=== PATIENT | female | born 1945 | race Caucasian/White ===

== ENCOUNTER → 2019-03-22 08:46 | Outpatient (BNVA) | payer MEDICARE, SELFPAY | PROVIDERS: Family Provider Nurse Practitioner; PCP Nurse Practitioner; Visit Provider Nurse Practitioner | DX: E11.42 Type 2 diabetes mellitus with diabetic polyneuropathy (principal); I10 Essential (primary) hypertension; K21.9 Gastro-esophageal reflux disease without esophagitis; E03.9 Hypothyroidism, unspecified | CPT/HCPCS: 80048; 81003 ==

== ENCOUNTER → 2019-04-24 08:33 | Outpatient (BNVA) | payer MEDICARE, SELFPAY | PROVIDERS: Family Provider Nurse Practitioner; PCP Nurse Practitioner; Visit Provider Nurse Practitioner | DX: I10 Essential (primary) hypertension (principal); M10.9 Gout, unspecified; E11.42 Type 2 diabetes mellitus with diabetic polyneuropathy; E03.9 Hypothyroidism, unspecified; E55.9 Vitamin D deficiency, unspecified; N18.9 Chronic kidney disease, unspecified; K21.9 Gastro-esophageal reflux disease without esophagitis | CPT/HCPCS: 80053; 80061; 83036; 84443; 84550 ==

== ENCOUNTER → 2019-04-25 10:32 | Outpatient (BNVA) | payer MEDICARE, SELFPAY | PROVIDERS: Family Provider Nurse Practitioner; PCP Nurse Practitioner; Visit Provider Nurse Practitioner | DX: E11.42 Type 2 diabetes mellitus with diabetic polyneuropathy (principal); E03.9 Hypothyroidism, unspecified; E11.65 Type 2 diabetes mellitus with hyperglycemia; K21.9 Gastro-esophageal reflux disease without esophagitis; I10 Essential (primary) hypertension; E11.69 Type 2 diabetes mellitus with other specified complication; M10.9 Gout, unspecified | CPT/HCPCS: 81003 ==

== ENCOUNTER → 2019-07-22 09:23 | Outpatient (BNVA) | payer MEDICARE, SELFPAY | PROVIDERS: Family Provider Nurse Practitioner; PCP Nurse Practitioner; Visit Provider Nurse Practitioner | DX: E11.65 Type 2 diabetes mellitus with hyperglycemia (principal); I10 Essential (primary) hypertension; E03.9 Hypothyroidism, unspecified | CPT/HCPCS: 80053; 80061; 81000; 83036; 84443 ==

== ENCOUNTER → 2019-10-14 08:05 | Outpatient (BNVA) | payer MEDICARE, SELFPAY | PROVIDERS: Family Provider Nurse Practitioner; PCP Nurse Practitioner; Visit Provider Nurse Practitioner | DX: E03.9 Hypothyroidism, unspecified (principal); E11.65 Type 2 diabetes mellitus with hyperglycemia; I10 Essential (primary) hypertension | CPT/HCPCS: 80053; 80061; 81000; 83036; 84443; 87086 ==

== ENCOUNTER 2019-11-11 13:01 | Outpatient (CLI) | payer MEDICARE, SELFPAY ==
--- NOTE | 2019-11-11 13:05 | MM_ITS ---
WS: [id number] BILATERAL SCREENING DIGITAL MAMMOGRAM WITH CAD HISTORY: SCREENING COMPARISON: 10/16/2018 and 09/21/2017 Bilateral CC and MLO views submitted. Computer aided detection analyzed. Breast composition: There are scattered areas of fibroglandular density. No suspicious masses, microc alcifications or architectural distortion. Benign calcifications in each breast. No suspicious masses . MM/[place] [id number] IMPRESSION: BI-RADS: 2-Benign FOLLOW UP: 1 Year Follow-up
== END 2019-11-11 13:02 | disposition home or self-care (01) ==
LOC: RADSHAW 13:03
PROVIDERS: PCP Nurse Practitioner; Visit Provider Nurse Practitioner
DX: Z12.31 Encounter for screening mammogram for malignant neoplasm of breast (principal)
CPT/HCPCS: 77067

== ENCOUNTER → 2020-01-06 08:21 | Outpatient (BNVA) | payer MEDICARE, SELFPAY | PROVIDERS: PCP Nurse Practitioner; Visit Provider Nurse Practitioner | DX: E11.65 Type 2 diabetes mellitus with hyperglycemia (principal); Z79.4 Long term (current) use of insulin; I10 Essential (primary) hypertension; E03.9 Hypothyroidism, unspecified; E55.9 Vitamin D deficiency, unspecified | CPT/HCPCS: 80053; 80061; 82306; 83036; 84443 ==

== ENCOUNTER → 2020-01-09 10:48 | Outpatient (BNVA) | payer MEDICARE, SELFPAY | PROVIDERS: PCP Nurse Practitioner; Visit Provider Nurse Practitioner | DX: E11.65 Type 2 diabetes mellitus with hyperglycemia (principal); E11.42 Type 2 diabetes mellitus with diabetic polyneuropathy; I10 Essential (primary) hypertension; E03.9 Hypothyroidism, unspecified; Z79.4 Long term (current) use of insulin | CPT/HCPCS: 81003 ==

== ENCOUNTER → 2020-02-03 16:39 | Outpatient (BNVA) | payer MEDICARE, SELFPAY | PROVIDERS: PCP Nurse Practitioner; Visit Provider Nurse Practitioner Family | DX: Z20.828 Contact with and (suspected) exposure to other viral communicable diseases (principal) | CPT/HCPCS: 87635 ==

== ENCOUNTER → 2020-03-26 08:26 | Outpatient (BNVA) | payer MEDICARE, SELFPAY | PROVIDERS: PCP Nurse Practitioner; Visit Provider Nurse Practitioner | DX: E11.65 Type 2 diabetes mellitus with hyperglycemia (principal); Z79.4 Long term (current) use of insulin; E55.9 Vitamin D deficiency, unspecified; I10 Essential (primary) hypertension; E03.9 Hypothyroidism, unspecified | CPT/HCPCS: 80053; 80061; 82306; 83036; 84443; 85025 ==

== ENCOUNTER → 2020-06-25 08:27 | Outpatient (BNVA) | payer MEDICARE, SELFPAY | PROVIDERS: PCP Nurse Practitioner; Visit Provider Nurse Practitioner | DX: E03.9 Hypothyroidism, unspecified (principal); E11.65 Type 2 diabetes mellitus with hyperglycemia; E55.9 Vitamin D deficiency, unspecified; Z79.4 Long term (current) use of insulin; I10 Essential (primary) hypertension | CPT/HCPCS: 80053; 80061; 82306; 83036; 84443; 85025 ==

== ENCOUNTER → 2020-07-08 10:09 | Outpatient (BNVA) | payer MEDICARE, SELFPAY | PROVIDERS: PCP Nurse Practitioner; Visit Provider Nurse Practitioner | DX: M25.551 Pain in right hip (principal); M16.11 Unilateral primary osteoarthritis, right hip | CPT/HCPCS: 72100; 73502 ==

== ENCOUNTER → 2020-09-24 08:26 | Outpatient (BNVA) | payer MEDICARE, SELFPAY | PROVIDERS: PCP Nurse Practitioner; Visit Provider Nurse Practitioner | DX: E03.9 Hypothyroidism, unspecified (principal); E11.65 Type 2 diabetes mellitus with hyperglycemia; E55.9 Vitamin D deficiency, unspecified; I10 Essential (primary) hypertension; Z79.4 Long term (current) use of insulin | CPT/HCPCS: 80053; 80061; 82306; 83036; 84443; 85025 ==

== ENCOUNTER → 2020-10-19 10:12 | Outpatient (BNVA) | payer MEDICARE, SELFPAY | PROVIDERS: PCP Nurse Practitioner; Referring Provider Nurse Practitioner; Visit Provider Specialist | DX: M16.11 Unilateral primary osteoarthritis, right hip (principal) | CPT/HCPCS: 73502 ==

== ENCOUNTER 2020-12-21 09:08 | Outpatient (CLI) | payer MEDICARE, SELFPAY ==
--- NOTE | 2020-12-21 09:13 | MM_ITS ---
WS: [id number] BILATERAL DIGITAL SCREENING MAMMOGRAPHY WITH CAD CLINICAL INFORMATION: SCREENING HISTORY: Screening mammogram. No current complaints. COMPARISON: November 11, 2019 TECHNIQUE: Bilateral CC and MLO views. FINDINGS: Scattered fibroglandular densities bilaterally. Stable incidental punctate calcifications. No suspici ous focal mass, asymmetry, calcifications, or architectural distortion. No evidence of malignancy. MM/[place] [id number] IMPRESSION: BI-RADS: 2-Benign FOLLOW UP: 1 Year Follow-up Recommend return to annual screening mammography.
== END 2020-12-21 09:09 | disposition home or self-care (01) ==
LOC: RADSHAW 09:11
PROVIDERS: PCP Nurse Practitioner; Visit Provider Nurse Practitioner
DX: Z12.31 Encounter for screening mammogram for malignant neoplasm of breast (principal)
CPT/HCPCS: 77067

== ENCOUNTER → 2020-12-22 06:47 | Day surgery (SDC) | payer MEDICARE, SELFPAY | PROVIDERS: PCP Nurse Practitioner; Visit Provider Specialist | DX: Z01.818 Encounter for other preprocedural examination (principal); M16.11 Unilateral primary osteoarthritis, right hip | CPT/HCPCS: 93005 ==

== ENCOUNTER → 2020-12-24 08:47 | Outpatient (BNVA) | payer MEDICARE, SELFPAY | PROVIDERS: PCP Nurse Practitioner; Visit Provider Nurse Practitioner | DX: E55.9 Vitamin D deficiency, unspecified (principal); I10 Essential (primary) hypertension; E11.42 Type 2 diabetes mellitus with diabetic polyneuropathy; E03.9 Hypothyroidism, unspecified; Z79.4 Long term (current) use of insulin | CPT/HCPCS: 80053; 80061; 82306; 83036; 84443 ==

== ENCOUNTER 2020-12-28 17:48 | Emergency (ER) | payer MEDICARE, SELFPAY ==
--- NOTE | 2020-12-28 17:55 | USR_ITS ---
PROCEDURE INFORMATION: Exam: US Duplex Right Lower Extremity Veins, Limited Exam date and time: 12/28/2020 5:55 PM Age: 75 years old Clinical indication: Pain; Leg, upper; Right; Additional info: Pain/swelling; Also look for carpenter's TECHNIQUE: Imaging protocol: Real-time Duplex ultrasound of the Right Lower Extremity with 2-D hankins scale, color Doppler flow and spectral waveform analysis with image documentation. Limited exam was focused on the right lower extremity veins. COMPARISON: No relevant prior studies available. FINDINGS: Right deep veins: Unremarkable. The common femoral, femoral, proximal profunda femoral and popliteal veins are patent without thrombus. Normal Doppler waveforms. Normal compressibility and/or augmentation response. Right superficial veins: Unremarkable. Saphenofemoral junction is patent without thrombus. Soft tissues: Unremarkable. US/[place] [id number] IMPRESSION: No evidence of deep vein thrombosis. Radiation Dose CTDIVOL = (mGy): DLP = (mGy-cm)
[2020-12-28 18:08] VITALS: BP 149/88; PULSE 86; RESP 18; TEMP 36.8; O2SAT 94; BMI 37.3
[2020-12-28 19:40] VITALS: BP 135/89; PULSE 77; RESP 18; O2SAT 96
--- NOTE | 2020-12-28 20:47 | W.ED.GENADLT ---
HPI - General Adult General: Chief complaint: General Medical Stated complaint: PAINFUL AREA BEHIND/INSIDE R KNEE:HX BLOOD CLOTS Time Seen by Provider: 12/28/20 20:34 Source: patient Mode of arrival: ambulatory Limitations: no limitations History of Present Illness: HPI narrative: Patient is a nice 75-year-old female who presents to ED today with a complaint of right leg pain mainly to her medial lower thigh that she noticed 2 days ago. She has had intermittent sharp pains to that area followed by periods of no discomfort. She has not noticed any redness or swelling. She is scheduled to have a hip replacement by Dr. Singleton next week so was recommended to come to the ED for rule out DVT. Patient is not having any chest pain or shortness of breath. Onset (ago): day(s) Severity: mild Pain Consistency: intermittent Relieving factors: none Exacerbating factors: none Associated symptoms: Reports no associated symptoms; Deny chest pain, dyspnea, malaise, nausea, palpitations, syncope or vomiting Treatments prior to arrival: none Review of Systems Const: Denies: fever(s), chills, body aches, fatigue or malaise Card: Denies: chest pain, palpitations, edema, lightheadedness, syncope, pre-syncope or dyspnea on exertion Resp: Denies: dyspnea GI: Denies: nausea or vomiting Musc: Reports: extremity pain; Denies: extremity swelling, joint pain, joint swelling, joint redness or limited range of motion Neuro: Denies: numbness in extremities or sensory changes PFSH ED PFSH: Medical History Acquired hypothyroidism Cerebrovascular ischemia, transient Chronic GERD Chronic kidney disease, unspecified Controlled diabetes mellitus with hyperglycemia, with long-term current use of insulin Controlled type 2 diabetes mellitus with diabetic polyneuropathy Essential (primary) hypertension Gout, unspecified History of mammogram 05/19/2016 Osteoarthritis involving multiple joints on both sides of body Restless legs syndrome Vitamin D deficiency Surgical History History of appendectomy History of cholecystectomy History of colonoscopy 08/16/2015 History of hip surgery Dec 2015 left total hip History of tonsillectomy Status post surgery of both feet Family History Mother Cancer PANCREASE Grandfather Diabetes PATERNAL Father Stroke Heart disease Social History Second hand smoke exposure: No Smoking risk assessment/counseling performed?: No Alcohol intake: never Desire information about alcohol rehabilitation?: No Counseling given: No Desire information about substance/drug rehabilitation?: No Counseling given: No Adopted: No Caregiver/support person: No Lives independently: Yes Household members: none Housing: House Marital status: Number of children: 1 service: No Current occupational status: unemployed Pets and animals: No History of recent travel: No Current gender identity: Female Physical Exam Const: COMMON NORMALS: no acute distress, patient oriented x3, no limitations and alert GENERAL APPEARANCE: cooperative NUTRITIONAL APPEARANCE: obese ORIENTATION/CONSCIOUSNESS: Yes awake, Yes oriented to person, Yes oriented to place and Yes oriented to time Extremity: RIGHT LOWER EXTREMITY: Yes upper leg (mild TTP medial distal thigh; no redness/swelling/palpable cord) Right upper leg: Yes neurovascular exam (normal DP/PT pulses) Neuro: COMMON NORMALS: patient oriented x3, moves all extremities, no focal motor deficits, no sensory deficits noted and gait normal SENSORIUM/ORIENTATION: Yes alert, Yes oriented to person, Yes oriented to place and Yes oriented to time Skin: COMMON NORMALS: no rashes or lesions noted GENERAL SKIN EXAM: no rashes or lesions noted TRAUMA: no lacerations or abrasions Course Vital Signs: Vital signs: Vital Signs Temperature 98.2 F 12/28/20 18:08 Pulse Rate 77 12/28/20 19:40 Respiratory Rate 18 12/28/20 19:40 Blood Pressure 135/89 12/28/20 19:40 Pulse Oximetry 96 12/28/20 19:40 MDM - General Adult Imaging Data^: US venous R LE: My impression: Per Maximus Panda, tech-no DVT, no Richmond's cyst Discharge Plan Discharge Patient Disposition: Home Clinical Impression: Acute pain of right thigh Condition: Stable Prescriptions: No Action allopurinol 100 mg tablet 100 mg PO DAILY Qty: 90 RF: 0 duloxetine [Cymbalta] 20 mg capsule,delayed release(DR/EC) 20 mg PO BID Qty: 180 RF: 0 famotidine [Pepcid] 40 mg tablet 40 mg PO DAILY Qty: 90 RF: 0 Soliqua 100/33 100 unit-33 mcg/mL insulin pen See Rx Instructions SUBCUT QAM Qty: 15 RF: 1 metformin 500 mg tablet extended release 24 hr 1,000 mg PO BID Qty: 360 RF: 0 (DME) pen needle, diabetic [Comfort EZ Pen [place]] 33 gauge x 5/32 needle See Rx Instructions .ROUTE .MEDSUPPLY Qty: 100 RF: 5 pregabalin [Lyrica] 75 mg capsule 75 mg PO BID Qty: 60 RF: 2 rosuvastatin 20 mg tablet 20 mg PO .HS Qty: 90 RF: 0 levothyroxine [Synthroid] 175 mcg tablet See Rx Instructions PO DAILY Qty: 90 RF: 0 lisinopril 5 mg tablet 5 mg PO DAILY Qty: 90 RF: 0 aspirin [Adult Aspirin Regimen] 81 mg tablet,delayed release (DR/EC) 81 mg PO ONCE RF: 0 nystatin 100,000 unit/gram cream 1 applic TOPICAL .at bedtime Qty: 60 RF: 0 multivitamin [Daily Multi-Vitamin] Tablet 1 tab PO DAILY RF: 0 (DME) Dexcom G6 Transmitter Device See Rx Instructions .ROUTE .MEDSUPPLY Qty: 1 RF: 0 (DME) Dexcom G6 Sensor Device See Rx Instructions .ROUTE .MEDSUPPLY Qty: 9 RF: 0 sulfamethoxazole-trimethoprim [Bactrim DS] 800-160 mg tablet 1 tab PO BID Qty: 20 RF: 0 Discharge Orders: Discharge ED (Routine); Ordered 12/28/20 Ordered By: Becka Dorantes Referrals: Dev Rivera, FORGING DIE FINISHER-C [Primary Care Provider] - Activity Restrictions/Additional Instructions: You may return to the emergency department or follow-up with primary care for worsening or severe pain, color or temperature changes to your extremity, numbness, tingling, loss of sensation to your leg, or any other concerns you may have. Coding Level of Care Code ED Telemetry Monitor for Biju Mei
[2020-12-28 21:05] VITALS: BP 163/97; RESP 18
== END 2020-12-28 21:07 | disposition home or self-care (01) ==
PROVIDERS: Emergency Provider Physician Assistant; PCP Nurse Practitioner
DX: M79.651 Pain in right thigh (principal); Z79.82 Long term (current) use of aspirin; Z79.84 Long term (current) use of oral hypoglycemic drugs; E11.9 Type 2 diabetes mellitus without complications; I10 Essential (primary) hypertension
CPT/HCPCS: 93971; 99282

== ENCOUNTER → 2020-12-31 09:27 | Outpatient (BNVA) | payer MEDICARE, SELFPAY | PROVIDERS: PCP Nurse Practitioner; Visit Provider Specialist | DX: M16.11 Unilateral primary osteoarthritis, right hip (principal); Z20.822 Contact with and (suspected) exposure to COVID-19; Z01.812 Encounter for preprocedural laboratory examination | CPT/HCPCS: 87635 ==

== ENCOUNTER 2021-01-05 16:22 | Observation (INO) | payer MEDICARE, SELFPAY ==
--- NOTE | 2020-12-22 06:47 | ECG_ITS ---
[facility] Test Date: 2020-12-22 Pat Name: Janneth Salamanca Department: Room: Gender: Female Utility Locator: : 1945 Requested By: Babs Campbell Order Number: [id number] Kemal MD: Raiza Carvalho M.D. Measurements Intervals [place] Rate: 72 P: 41 MO: 142 QRS: -24 QRSD: 86 T: 8 QT: 344 QTc: 378 Interpretive Statements SINUS RHYTHM LOW QRS VOLTAGE IN PRECORDIAL LEADS [QRS DEFLECTION < 1.0 mV IN CHEST LEADS] POSSIBLE ANTERIOR MYOCARDIAL INFARCTION , OF INDETERMINATE AGE [30 ms Q WAVE IN V3/V4, OR R < 0.2 mV IN V4] Compared to ECG 05/07/2018 23:04:55 Left-axis deviation no longer present Myocardial infarct finding still present Electronically Signed On 12-22-2020 22:32:22 CDT by Raiza Carvalho M.D. [id number]
[2020-12-22 09:01] VITALS: BMI 37.3
--- NOTE | 2020-12-22 10:04 | ANES.PREANE2 ---
Pre-Anesthetic Assessment Pre-Anesthetic Assessment: Height/Weight: Height 1.57 m Weight 92.533 kg Preop Diagnosis: Hip pain Proposed Procedure: Operation Date: 01/05/21 14:15 Proposed Procedures p Total Hip Arthroplasty 95548 M16.9(Right) - Elizabeth Singleton MD Familial anesthetic complications: None Social: Social History: No alcohol and No tobacco Exam: Pre-Anes Outpt Exam: alert, oriented x 3, clear to auscultation bilaterally and regular rate & rhythm Airway: Cervical ROM: WNL MP: 2 Dentition: Full CV/HEM: CV/HEM: HTN GI: GI: GERD Metabolic: Metabolic: DM, Morbid obesity and Thyroid Musc/skel: Musc/skel: Lower Back Pain Neuropsych: Neuropsych: TIA (2 year ago) Anesthetic Plan: ASA status: 3 Anesthesia: Regional (specify below) (spinal) Other: spinal Risk of > 500 ml blood loss (7ml/kg in children): No PFSH Anesthesia PFSH: Medical History Acquired hypothyroidism Cerebrovascular ischemia, transient Chronic GERD Chronic kidney disease, unspecified Controlled diabetes mellitus with hyperglycemia, with long-term current use of insulin Controlled type 2 diabetes mellitus with diabetic polyneuropathy Essential (primary) hypertension Gout, unspecified History of mammogram 05/19/2016 Osteoarthritis involving multiple joints on both sides of body Restless legs syndrome Vitamin D deficiency Surgical History History of appendectomy History of cholecystectomy History of colonoscopy 08/16/2015 History of hip surgery Dec 2015 left total hip History of tonsillectomy Status post surgery of both feet Family History Mother Cancer PANCREASE Grandfather Diabetes PATERNAL Father Stroke Heart disease Social History Second hand smoke exposure: No Smoking risk assessment/counseling performed?: No Alcohol intake: never Desire information about alcohol rehabilitation?: No Counseling given: No Desire information about substance/drug rehabilitation?: No Counseling given: No Adopted: No Caregiver/support person: No Lives independently: Yes Household members: none Housing: House Marital status: Number of children: 1 service: No Current occupational status: unemployed Pets and animals: No History of recent travel: No Current gender identity: Female Data Anesthesia Cardiac Studies: No Data to Display
[2020-12-22 10:41] LABS: Add Urine Microscopic? YES; Bilirubin Urine Neg (Negative); Blood Urine Neg (Negative); Glucose Urine UA Norm (Normal); Ketones Urine Negative (Negative); Leukocyte Esterase Urine 1+ (Negative); Nitrate Urine Negative (Negative); Protein Urine Neg (Negative); Specific Gravity, Urine 1.015 (1.005-1.030); Urine Appearance Clear (CLEAR); Urine Color Yellow (Yellow); Urobilinogen Urine Norm (Negative); pH Urine 5 (5-7)
[2020-12-22 10:42] LABS: Add Urine Culture? Yes; Bacteria Urine TRACE /hpf; Squamous Epithelial Cell Urine 0-4 /hpf (0-5)
[2020-12-22 10:53] LABS: Basophils % 0.6 %; Eosinophils # 0.2 10^3/uL (0.0-0.8); Eosinophils % 3.4 %; Hematocrit 45.9 % (37.0-47.0); Hemoglobin 13.9 g/dL (11.5-15.3); Lymphocytes # 1.8 10^3/uL (0.8-4.8); Lymphocytes % 26.7 %; Mean Corpuscular HGB Conc 30.3 g/dL (30.0-36.0); Mean Corpuscular Volume 89.1 fl (81-99); Mean Platelet Volume 11.2 fL (7.4-10.4); Monocytes # 0.5 10^3/uL (0.2-0.9); Monocytes % 7.8 %; Neutrophils # 4.08 10^3/uL (1.8-7.7); Neutrophils % 61.2 %; Nucleated Red Blood Cells % 0 %; Platelet Count 197 10^3/cmm (130-400); Red Blood Count 5.15 10^6/uL (4.1-5.3); Red Cell Distribution Width 14.4 % (12.1-15.1); White Blood Count 6.7 10^3/uL (4.0-10.0)
[2020-12-22 11:10] LABS: Alanine Aminotransferase 14 U/L (0-33); Albumin Level 4.1 g/dL (3.5-5.2); Alkaline Phosphatase 55 IU/L (35-105); Anion Gap 11.6 (5-19); Aspartate Amino Transferase 15 U/L (0-32); Blood Urea Nitrogen 14 mg/dL (8-23); Calcium 9.7 mg/dL (8.5-10.5); Carbon Dioxide 28 mmol/L (22-29); Chloride 106 mmol/L (98-107); Creatinine Clr Calc Pharmacy 66.3163; Globulin 2.5 g/dL (1.3-4.6); Glucose 93 mg/dL (65-115); Osmolality Calculated 292 mOsm/kg (285-295); Potassium 4.6 mmol/L (3.5-5.1); Sodium 141 mmol/L (136-145); Total Bilirubin 0.4 mg/dL (0.15-1.2); Total Protein 6.6 g/dL (6.6-8.7)
[2021-01-05] VITALS (18 sets, daily range): BP systolic 87–137; BP diastolic 44–85; PULSE 71–80; RESP 15–20; TEMP 35.9–36.6; O2SAT 93–98
--- NOTE | 2021-01-05 11:25 | P.HPUD_ITS ---
Surgery/Procedure H&P Update DATE OF PROCEDURE: January 05, 2021 DATE H&P PERFORMED: 12/09/20 H&P UPDATE INFORMATION: I have reviewed H&P completed within last 30 days, I have examined patient prior to procedure, No changes to prior documentation and H&P is in [facility] on date indicated PREOP DIAGNOSIS: Primary osteoarthritis right hip PLANNED PROCEDURE: Operation Date: 01/05/21 11:20 Proposed Procedures p Total Hip Arthroplasty 74699 M16.9(Right) - Elizabeth Singleton MD Related Problem List Diagnoses (1) Primary osteoarthritis of right hip:
[2021-01-05 11:27] LABS: Glucose Point of Care 111 mg/dL (70-110)
--- NOTE | 2021-01-05 11:31 | P.ANESUD_ITS ---
Pre-Anesthetic Update Pre-Anesthetic Assessment: Date of Surgery/Procedure: 01/05/21 Preop Kathe gnosis: Primary osteoarthritis right hip Proposed Procedure: Operation Date: 01/05/21 11:20 Proposed Procedures p Total Hip Arthroplasty 09146 M16.9(Right) - Elizabeth Singleton MD Any changes to Pre-Anesthetic Assessment?: No Last Intake: Intake Last Liquid Date 01/04/21 Last Liquid Time 19:00 Last Solid Date 01/04/21 Last Solid Time 19:00 Labs Last 48hrs: Laboratory Results - last 48 hr 01/05/21 11:24 POC Glucose 111 H Vitals: Pulse Rhythm 01/05/21 11:14 Pulse Strength 3+ Normal 01/05/21 11:14 Oxygen Delivery Me thod 01/05/21 11:14 Exam: Pre-Anes Outpt Exam: alert, oriented x 3, clear to auscultation bilaterally and regular rate & rhythm Cardiac Studies: No Data to Display
[2021-01-05] MEDS: acetaminophen 1,000 MG/100 ML PIGGYBACK 400 MG IV ×2 (11:34→20:24)
[2021-01-05] MEDS: sodium chloride 0.9% 1,000 ML 30 ML IV (11:34)
[2021-01-05] MEDS: vancomycin 1,000 MG in sodium chloride 0.9% 250 ML 167 MG IV (11:48)
[2021-01-05] MEDS: vancomycin 1,000 MG SDV 1000 MG IRRIGATION (13:12)
[2021-01-05] MEDS: vancomycin 1,000 MG SDV 1000 MG XX (13:13)
--- NOTE | 2021-01-05 14:47 | XR_ITS ---
WS: [id number] Exam: XR pelvis 1-2V* [id number] Date/Time of Exam: 01/05/2021 3:10 PM Reason For Exam: S/P RT ARIN Bilateral total hip replacements are noted. Both appear to be intact without evidence of loosening or fracture. The right total hip replacement appears to be relatively recent. There is still postoperat henrry air in the adjacent soft tissues. XR/XR pelvis 1-2V* [id number] IMPRESSION: 1. Apparent relatively recent right total hip replacement which appears to be i ntact. There is also a total hip replacement on the left which also appears to be intact without complication.
--- NOTE | 2021-01-05 14:48 | PM.OP ---
Operative Report Date of procedure: January 05, 2021 Pre-op Diagnosis: Primary osteoarthritis right hip Post-op diagnosis: same Post-op Findings: Significant degenerative osteoarthritis with no cartilage remaining on the femoral head and large osteophytes Procedure Done: Right total hip arthroplasty Implants: The [place] total hip system with the following implants: A 52 mm by E Trident II solid back acetabular shell, an MDM cementless liner 42 mm inner diameter by E alpha code and Accolade II size 5 with 127 degree neck angle hip stem with a 28 mm outer diameter +0 mm neck offset and a rastafari X3 insert size 28 mm inner diameter by 42E Specimens removed/disposition: Bone, disposed of Pathology: none sent Surgeon: Elizabeth Singleton Auto Suspension And Steering Mechanic: [facility] Anesthesia: MAC (With spinal, ASA 3) Estimated blood loss (mL): 300 IV fluids (mL): 1,400 Urine output (mL): 200 Complications: None Findings: Leg lengths appeared equal at the conclusion of the case. The hip was stable at 90 degrees of flexion with 80 degrees of internal rotation and 20 degrees of adduction. It was stable to external rotation. Condition: stable Disposition: PACU Brief History: This 75-year-old woman presented to my clinic complaining of significant right hip pain. She states the more she walks the greater the pain becomes. She states the pain wakes her up at night, and her functional limitations cause her significant difficulties with activities of daily living. She had a previous Left ARIN in [place] with Dr. Eli. Risks and complications are discussed with the patient regarding total hip arthroplasty. After this discussion, the patient wished to proceed with right total hip arthroplasty. Consents were signed and questions were answered. Procedure: Patient was brought to the operating theater. She was transferred to the operating room table and subsequently administered a spinal anesthesia with MAC, ASA 3. Following administration of adequate anesthesia, the patient was placed in full lateral position and held in position with a pegboard. The patient's right lower extremity was then prepped and draped in usual fashion utilizing DuraPrep. It was draped free. Following prepping and draping a surgical pause was performed. At the time of surgical pause, we identified the site and side of surgery. We also identified the patient and preoperative surgical markings. Confirmation was made of equipment availability. Additionally, the patient's preoperative IV antibiotic, vancomycin 1 g, was confirmed as being given in a timely fashion and being the appropriate antibiotic. She received TXA 1 g preoperatively as well. Following the surgical pause, an incision was made centering over the patient's greater trochanter continuing proximally and distally as necessary to allow access to the hip joint. Dissection continued through skin and soft tissues using a scalpel, and hemostasis was obtained using electrocautery. The tensor fascia danielle was identified and incised longitudinally. Sciatic nerve was identified and protected throughout the surgical procedure. A Charnley U retractor was placed after the tensor fascia danielle had been incised longitudinally, and the sciatic nerve had been identified. The piriformis muscle was identified and tagged. Piriformis muscle along with the remaining short external rotators were then incised from the posterior aspect of the hip joint. These were retracted posteriorly. The capsule was entered in a T-type fashion with the edges being tagged. The hip was then dislocated. Following hip dislocation, a femoral neck osteotomy was accomplished in the appropriate position. We then evaluated the acetabulum. The femur was retracted anteriorly. Soft tissues were retracted and the labrum was removed. We then began reaming. We reamed to 51 mm to allow for a size 52 mm acetabular shell. The acetabular component was impacted into position. It was noted that the acetabulum matched the bony anatomy. The cup was noted to seat nicely and had good fixation upon impact. The MDM cementless liner was impacted into position and care was taken to assure that it completely seated. Also, we confirmed that the acetabular insert was completely seated prior to addressing the femur. Attention was directed to the proximal femur. The proximal femur was lifted out of the wound. A canal finder was passed, and we then used the reamer to lateralize. We then began broaching. We broached sequentially and had excellent fit and fill with the size 5 Accolade II 127 degree femoral component. A trial reduction was accomplished with a +0 mm offset femoral head once the size 5 broach was placed in position. The patient was stable with this construct, and it was not felt that we had increased her leg length. With this in place, we had the above stabilities, and at that time, we felt that we had restored leg lengths. We also felt that we had excellent stability noted above. Therefore, trial components were removed after the hip was dislocated. The size 5 Accolade II 127 degree neck angle hip stem was impacted into position without difficulty and onto this was placed a +0 mm offset by 28 mm outer diameter femoral head inside of the MDM size 42E insert with a 28 mm inner diameter. With this construct, we had the above-noted stability. The stem was noted to seat nicely prior to placement of the femoral head. The wound was copiously irrigated with Betadine. At this time, with all components in appropriate position, the hip was reduced. Following reduction of the prosthesis once again, we confirmed the stability of the hip. Leg lengths were also felt to be satisfactory. Being satisfied with the prosthesis, attention was directed to closure. Closure was accomplished with 0 Vicryl in the capsular tissues. Piriformis was reattached with 0 Vicryl as well. Tensor fascia danielle was closed with 0 Vicryl in an interrupted fashion. The subcutaneous tissues were closed with a deep layer of 0 Vicryl followed by 2-0 Monocryl. Vancomycin powder and a Gelfoam thrombin mixture was placed into the wound as well. The skin was closed with a running 3-0 Monocryl followed by Dermabond, Prineo, and OpSite. The patient was placed in an abduction pillow. She was returned the Recovery Room in a satisfactory condition and will be discharged to the floor for postoperative rehabilitation and pain management. There were no complications. Associated Problem List Diagnoses (1) Primary osteoarthritis of right hip: (2) Obesity, Class II, BMI 35-39.9:
--- NOTE | 2021-01-05 15:36 | SUR.PHASEI ---
PT AWAKE ALERT DENEIS PAIN PT ABLE TO MOVE BILAT TOES , SPINAL ANESTHESIA, BELOW T-10 LEVEL, BILAT FOOT PUMPS ON, DRESSING TO LT HIP D/I FIRST ICE TO SITE, DISTAL LT FOOT PULSE STRONG AND REGULAR. VSS. HOB AT 5 DEGREES.
--- NOTE | 2021-01-05 15:37 | SUR.PHASEI ---
PT IN HOLDING FOR ROOM NOW, PT HAS A BROCK CATHETER PATENT OF YELLOW URINE TO TUBING AND BAG,
--- NOTE | 2021-01-05 16:13 | ANE.PACU2 ---
Inpatient post-anesthesia follow up: Airway intact: Yes Vital signs: Temperature 97.8 F Pulse Rate 79 Respiratory Rate 18 Blood Pressure 108/49 Pulse Oximetry 94 Oxygen Delivery Me thod Room Air Oxygen Flow Rate Fraction of Inspir ed Oxygen Hydration adequate: Yes Nausea and vomiting: No Pain level: 3 Mental status: Baseline
[2021-01-05 16:46] LABS: Glucose Point of Care 118 mg/dL (70-110)
--- NOTE | 2021-01-05 17:01 | SUR.PHASEI ---
PT STILL IN HOLDING WITH HOB AT 30 DEGREES VSS PT TAKING SODA AND CRACKERS DINNER ORDERED , FAMILY X 2 AT BEDSIDE AND PT AND FAMILY UPDATED THAT HER ROOM IS ALMOST READY , BEING CLEANED NOW. REPORT CALLED TO FLOOR NURSE .
[2021-01-05] MEDS: sennosides-docusate Tablet 2 TAB PO (18:33)
[2021-01-05] MEDS: iron polysaccharide complex 150 mg Capsule PO (18:33)
[2021-01-05] MEDS: chlorhexidine gluconate 0.12% Btl 473 mL 30 ML MUCOUS MEM ×2 (18:33→20:28)
[2021-01-05] MEDS: mupirocin oint 22 gm 1 APPLIC NASAL (18:33)
[2021-01-05] MEDS: pregabalin 75 mg Capsule PO (18:33)
[2021-01-05] MEDS: oxyCODONE 5 mg IR Tab/Cap PO ×2 (18:33→23:31)
[2021-01-05] MEDS: calcium carbonate 500 mg Chew Tablet 1000 MG PO (18:33)
--- NOTE | 2021-01-05 20:00 | PC.NURSE ---
i reported low temp 97.0 to nurse and noticed shes been running low all day
[2021-01-05] MEDS: duloxetine 20 mg Capsule PO (20:27)
[2021-01-05] MEDS: atorvastatin 40 mg Tablet 80 MG PO (20:27)
[2021-01-06] VITALS (8 sets, daily range): BP systolic 108–130; BP diastolic 53–74; PULSE 85–91; RESP 16–18; TEMP 36.6–36.8; O2SAT 91–94
[2021-01-06 02:58] LABS: Basophils % 0.4 %; Eosinophils # 0.1 10^3/uL (0.0-0.8); Eosinophils % 1.6 %; Hematocrit 38.7 % (37.0-47.0); Hemoglobin 11.9 g/dL (11.5-15.3); Lymphocytes # 1.8 10^3/uL (0.8-4.8); Lymphocytes % 26.8 %; Mean Corpuscular HGB Conc 30.7 g/dL (30.0-36.0); Mean Corpuscular Volume 87.8 fl (81-99); Mean Platelet Volume 10.9 fL (7.4-10.4); Monocytes # 0.7 10^3/uL (0.2-0.9); Monocytes % 10.3 %; Neutrophils # 4.16 10^3/uL (1.8-7.7); Neutrophils % 60.8 %; Nucleated Red Blood Cells % 0 %; Platelet Count 176 10^3/cmm (130-400); Red Blood Count 4.41 10^6/uL (4.1-5.3); Red Cell Distribution Width 14.7 % (12.1-15.1); White Blood Count 6.9 10^3/uL (4.0-10.0)
[2021-01-06 03:23] LABS: Anion Gap 14.1 (5-19); Blood Urea Nitrogen 17 mg/dL (8-23); Calcium 9.4 mg/dL (8.5-10.5); Carbon Dioxide 23 mmol/L (22-29); Chloride 105 mmol/L (98-107); Glucose 116 mg/dL (65-115); Osmolality Calculated 287 mOsm/kg (285-295); Potassium 5.1 mmol/L (3.5-5.1); Sodium 137 mmol/L (136-145)
[2021-01-06] MEDS: acetaminophen 1,000 MG/100 ML PIGGYBACK 400 MG IV ×2 (03:45→12:38)
[2021-01-06] MEDS: oxyCODONE 5 mg IR Tab/Cap PO ×3 (03:45→14:08)
[2021-01-06] MEDS: levothyroxine 175 mcg Tablet PO (05:45)
--- NOTE | 2021-01-06 05:52 | PC.NURSE ---
SHIFT SUMMARY Has rested for intervals. Says she had a difficult time sleeping for very long. Has been medicated with po OXYIR and scheduled IV Tylenol for pain control and most of the time rates pain around 3. Dressing to R hip incision intact. Ice pack refreshed thru night as needed. Neurovascular checks to RLE WNL. Foot pumps in place bilat and TOMAS hose to left leg. Has drank fluids without nausea and Bell draining well. Will be removed this am
[2021-01-06] MEDS: allopurinol 100 mg Tablet PO (09:00)
[2021-01-06] MEDS: famotidine 20 mg Tablet 40 MG PO (09:00)
[2021-01-06] MEDS: metformin XR 500 MG Tablet 1000 MG PO (09:00)
[2021-01-06] MEDS: iron polysaccharide complex 150 mg Capsule PO (09:00)
[2021-01-06] MEDS: pregabalin 75 mg Capsule PO (09:00)
[2021-01-06] MEDS: cholecalciferol (vitamin D3) 1,000 unit Tablet 1000 UNIT PO (09:00)
[2021-01-06] MEDS: multivitamin therapeutic Tablet 1 TAB PO (09:00)
[2021-01-06] MEDS: duloxetine 20 mg Capsule PO (09:00)
[2021-01-06] MEDS: calcium carbonate 500 mg Chew Tablet 1000 MG PO (09:00)
[2021-01-06] MEDS: lisinopril 5 mg Tablet PO (09:00)
[2021-01-06] MEDS: aspirin 325 mg EC Tablet PO (09:00)
[2021-01-06] MEDS: sennosides-docusate Tablet 2 TAB PO (09:00)
--- NOTE | 2021-01-06 09:30 | PC.CHAP ---
Pastoral Care Encounter/Spiritual Assessment Type of Contact [] Declined criminology professor visit [] Patient/Family/Request visit [] Outpatient visit [] Follow-up visit [] Physician referral [] Code/Alert [x] Routine visit [] Staff referral [] Actively dying [] Patient sleeping [] Family support [] [] Out of room [] Palliative care [] [] Receiving care in room [] Pre-surgical visit [] Trauma [] Long length of stay [] ICU visit [] Other: Relational/Emotional Strength [x] Patient feels connected with others/family/visitors/staff [] Distress [] Loneliness/isolation [] Abandonment Spirituality of Patient [x] Person of Ruth [x] Attends Anabaptism of their Ruth [x] Believes in Prayer [] Reads Bible or Christianity materials [] There are Spiritual issues to be addressed Logistics/Shipper Interventions [x Prayer x] Active listening [x [] Spiritual counseling [] Bereavement support [x] Provided bereavement packet [] Provided Bible/devotional materials [] Provided toy/stuffed animal, coloring book to patient or family member [] Provided Communion [] Anointing/[place] [] Salvation [x] Completed spiritual assessment [] Other: Impact on Illness or Injury [] Angry [] Fearful [] Anxious [] Often cries [] Exhaustion [] Unable to work [] Unable to attend protestant [] Unable to walk/stand [] Unable to read [] Unable to drive [] Unable to eat/drink [] Unable to sleep [] Unable to be with family [] Patient intubated [] Other: Summary patient doing very good Time spent with patient 15 min
--- NOTE | 2021-01-06 09:57 | PM.DCS ---
Discharge Providers Date of Admission: 01/05/21 16:22 Date of Discharge: January 06, 2021 Attending Provider at Admission: Elizabeth Singleton MD Attending Provider at Discharge: Elizabeth Singleton MD Primary Care Provider: MARK Hardwick Diagnoses at Discharge Discharge Diagnosis (1) Primary osteoarthritis of right hip: Status: Acute (2) Obesity, Class II, BMI 35-39.9: Status: Acute (3) S/P total right hip arthroplasty: Status: Acute Permanent problem details: The [place] total hip system with the following implants: A 52 mm by E Trident II solid back acetabular shell, an MDM cementless liner 42 mm inner diameter by E alpha code and Accolade II size 5 with 127 degree neck angle hip stem with a 28 mm outer diameter +0 mm neck offset and a yazidi X3 insert size 28 mm inner diameter by 42E Reason for Visit Reason for Visit: total hip arthroplasty Hospital Course Hospital Course This 75-year-old woman presented to the hospital for right total hip arthroplasty. Previously, the patient underwent left total hip arthroplasty, and she has tolerated this well. Her previous total hip arthroplasty was accomplished elsewhere. Today, she is seen and evaluated on her postoperative day 1. She did well overnight with minimal complaints of pain. She did have some lightheadedness upon initial physical therapy, but this has resolved. She is able to get around independently. She is not nauseated. She is eating well and deemed appropriate for discharge to home. Arrangements have been made for her to have home physical therapy. She is advised to call the office with any issues or concerns. Physical therapy is in agreement with her discharge to home. Physical Exam Const: COMMON NORMALS: no acute distress, average body habitus, patient oriented x3 and alert GENERAL APPEARANCE: cooperative and comfortable ORIENTATION/CONSCIOUSNESS: Yes awake HENMT: COMMON NORMALS: normocephalic and atraumatic HEAD & SCALP: normocephalic and atraumatic Eye: GENERAL EYE: appearance normal, both eyes and all related structures Chest: COMMONS NORMALS: normal inspection of the chest Resp: COMMON NORMALS: normal respiratory effort EFFORT & INSPECTION: Yes able to speak in complete sentences and Yes symmetric chest movement Extremity: RIGHT LOWER EXTREMITY: Yes hip joint Right hip: Yes inspection (Dressing is dry and intact. Minimal bruising.), Yes palpation (Minimal to no tenderness.), Yes ROM (Not evaluated.) and Yes neurovascular exam (Intact distally to sensory and motor function.) Neuro: COMMON NORMALS: patient oriented x3 SENSORIUM/ORIENTATION: Yes alert Psych: COMMON NORMALS: mental status grossly normal APPEARANCE: Yes grossly normal ATTITUDE: Yes calm and Yes engaged ATTENTION/CONCENTRATION: Yes attention grossly intact Skin: COMMON NORMALS: no rashes or lesions noted GENERAL SKIN EXAM: no rashes or lesions noted Urinary Catheter Management^: Bell: Cath Placed During This Visit: yes Reason for Continuing Indwelling Catheter: Perioperative Use in Selected Surgeries Urinary Catheter Date of Insertion: 01/05/21 Urinary Catheter Time of Insertion: 12:38 Discharge Data Data Completed and Pending: Completed Studies During Hospitalization Category Date Time Status XR pelvis 1-2V* 7 0 Routine Exams 01/05/21 14:47 Completed Labs from last 24 hours 01/06/21 01/06/21 01/05/21 02:46 02:46 16:41 WBC 6.9 RBC 4.41 Hgb 11.9 Hct 38.7 MCV 87.8 MCH 27.0 L MCHC 30.7 RDW 14.7 Plt Count 176 MPV 10.9 H Neut % (Auto) 60.8 Lymph % (Auto) 26.8 [place] % (Auto) 10.3 Eos % (Auto) 1.6 Baso % (Auto) 0.4 Neut # (Auto) 4.16 Lymph # (Auto) 1.8 [place] # (Auto) 0.7 Eos # (Auto) 0.1 Baso # (Auto) 0.0 Nucleated RBC % (a uto) 0 Nucleated RBCs # 0.0 Sodium 137 Potassium 5.1 Chloride 105 Carbon Dioxide 23 Anion Gap 14.1 BUN 17 Creatinine 0.9 GFR Calculation Not Reportable Glucose 116 H POC Glucose 118 H Calculated Osmolal ity 287 Calcium 9.4 01/05/21 11:24 WBC RBC Hgb Hct MCV MCH MCHC RDW Plt Count MPV Neut % (Auto) Lymph % (Auto) [place] % (Auto) Eos % (Auto) Baso % (Auto) Neut # (Auto) Lymph # (Auto) [place] # (Auto) Eos # (Auto) Baso # (Auto) Nucleated RBC % (a uto) Nucleated RBCs # Sodium Potassium Chloride Carbon Dioxide Anion Gap BUN Creatinine GFR Calculation Glucose POC Glucose 111 H Calculated Osmolal ity Calcium Vitals: Last Vital Signs Temp 98.3 F 01/06/21 07:30 Pulse 86 01/06/21 07:30 Resp 18 01/06/21 09:00 BP 108/53 01/06/21 07:30 Pulse Ox 91 01/06/21 09:00 Discharge Plan Discharge Patient Disposition: Home Health Service Condition: Stable Prescriptions: New acetaminophen 500 mg Tablet 1,000 mg PO Q8H 15 Days Qty: 0 RF: 0 aspirin 325 mg Tablet,Delayed Release (Dr/Ec) 325 mg PO DAILY 30 Days Qty: 0 RF: 0 oxycodone 5 mg Tablet 5 mg PO Q4H PRN (Reason: Moderate Pain) 7 Days Qty: 30 RF: 0 Continued allopurinol 100 mg tablet 100 mg PO DAILY Qty: 90 RF: 0 duloxetine [Cymbalta] 20 mg capsule,delayed release(DR/EC) 20 mg PO BID Qty: 180 RF: 0 famotidine [Pepcid] 40 mg tablet 40 mg PO DAILY Qty: 90 RF: 0 Soliqua 100/33 100 unit-33 mcg/mL insulin pen See Rx Instructions SUBCUT QAM Qty: 15 RF: 1 metformin 500 mg tablet extended release 24 hr 1,000 mg PO BID Qty: 360 RF: 0 (DME) pen needle, diabetic [Comfort EZ Pen [place]] 33 gauge x 5/32 needle See Rx Instructions .ROUTE .MEDSUPPLY Qty: 100 RF: 5 pregabalin [Lyrica] 75 mg capsule 75 mg PO BID Qty: 60 RF: 2 rosuvastatin 20 mg tablet 20 mg PO .HS Qty: 90 RF: 0 levothyroxine [Synthroid] 175 mcg tablet See Rx Instructions PO DAILY Qty: 90 RF: 0 lisinopril 5 mg tablet 5 mg PO DAILY Qty: 90 RF: 0 nystatin 100,000 unit/gram cream 1 applic TOPICAL .at bedtime Qty: 60 RF: 0 multivitamin [Daily Multi-Vitamin] Tablet 1 tab PO DAILY RF: 0 (DME) Dexcom G6 Transmitter Device See Rx Instructions .ROUTE .MEDSUPPLY Qty: 1 RF: 0 (DME) Dexcom G6 Sensor Device See Rx Instructions .ROUTE .MEDSUPPLY Qty: 9 RF: 0 Held aspirin [Adult Aspirin Regimen] 81 mg tablet,delayed release (DR/EC) 81 mg PO ONCE RF: 0 Hold Instructions: Resume on 02/05/21. Continue 30 days of full dose aspirin regimen before returning to your normal 81 mg daily. Discharge Orders: Discharge Order (Routine); Ordered 01/06/21 Ordered By: Elizabeth Singleton Referrals: Elizabeth Singleton MD [Physician] - 01/18/21 10:15 am Discharge Diet: Advance as tolerated and Usual diet Discharge Activity: Limit activity as instructed and Use walker/crutches as instructed Patient Instructions: Acetaminophen (By mouth), Aspirin (By mouth), Oxycodone, Rapid Release (By mouth), Total Hip Replacement (GEN), Hip Abduction Pillow (GEN), Opioid Safety Activity Restrictions/Additional Instructions: Physical therapy at home for gait training, ambulation, and range of motion. Continue posterior hip precautions. Discharge Attestations Time Spent in Discharge Care*: greater than 30 min Specific Discharge Activities: educating patient, documenting/other paperwork and evaluating patient/reviewing data Quality Metrics Clinical Quality Measures During this hospital stay, did patient experience: None Coding Level of Care Code Acute [facility] note Diagnoses Primary osteoarthritis of right hip M16.11 Obesity, Class II, BMI 35-39.9 E66.9 S/P total right hip arthroplasty Z96.641
[2021-01-06] MEDS: mupirocin oint 22 gm 1 APPLIC NASAL (10:26)
[2021-01-06] MEDS: chlorhexidine gluconate 0.12% Btl 473 mL 30 ML MUCOUS MEM ×2 (10:26→12:38)
[2021-01-06] MEDS: vancomycin 1,000 MG in sodium chloride 0.9% 250 ML 250 MG IV (12:52)
--- NOTE | 2021-01-06 14:32 | PC.NURSE ---
discharge instructions given to patient and patient verbalized understanding of instructions. patient dressed and waiting on ride home.
--- NOTE | 2021-01-06 15:03 | PC.NURSE ---
patient taken to private vehicle by staff via wheelchair.
== END 2021-01-06 15:06 | disposition home health service (06) ==
LOC: MEDSURG 16:22
PROVIDERS: Admitting Provider Specialist; PCP Nurse Practitioner; Visit Provider Specialist
PROC: (CPT 27130; principal; 2021-01-05 11:10)
DX: M16.11 Unilateral primary osteoarthritis, right hip (principal); I10 Essential (primary) hypertension; K21.9 Gastro-esophageal reflux disease without esophagitis; E66.01 Morbid (severe) obesity due to excess calories; Z68.37 Body mass index [BMI] 37.0-37.9, adult; E11.42 Type 2 diabetes mellitus with diabetic polyneuropathy; G25.81 Restless legs syndrome; E55.9 Vitamin D deficiency, unspecified; E03.9 Hypothyroidism, unspecified; Z79.84 Long term (current) use of oral hypoglycemic drugs; Z79.82 Long term (current) use of aspirin; Z79.4 Long term (current) use of insulin; Z86.73 Personal history of transient ischemic attack (TIA), and cerebral infarction without residual deficits
CPT/HCPCS: 27130; 36415; 36416; 51702; 72170; 80048; 80053; 81001; 82962; 85025; 87077; 87086; 87186; 96365; 97116; 97161; 97165; 97530; A9281; C1776; G0378; J2704; J3370; J7030; J7050; P9041

== ENCOUNTER → 2021-01-18 10:33 | Outpatient (BNVA) | payer MEDICARE, SELFPAY | PROVIDERS: PCP Nurse Practitioner; Visit Provider Specialist | DX: Z96.641 Presence of right artificial hip joint (principal) | CPT/HCPCS: 73502 ==

== ENCOUNTER → 2021-03-01 11:29 | Outpatient (BNVA) | payer MEDICARE, SELFPAY | PROVIDERS: PCP Nurse Practitioner; Visit Provider Specialist | DX: Z96.641 Presence of right artificial hip joint (principal) | CPT/HCPCS: 73502 ==

== ENCOUNTER → 2021-03-04 09:18 | Outpatient (BNVA) | payer MEDICARE, SELFPAY | PROVIDERS: PCP Nurse Practitioner; Visit Provider Nurse Practitioner Family | DX: Z20.822 Contact with and (suspected) exposure to COVID-19 (principal) | CPT/HCPCS: 87635; 87801 ==

== ENCOUNTER → 2021-03-22 08:20 | Outpatient (BNVA) | payer MEDICARE, SELFPAY | PROVIDERS: PCP Nurse Practitioner; Visit Provider Nurse Practitioner | DX: E55.9 Vitamin D deficiency, unspecified (principal); I10 Essential (primary) hypertension; E11.42 Type 2 diabetes mellitus with diabetic polyneuropathy; Z79.4 Long term (current) use of insulin; E03.9 Hypothyroidism, unspecified | CPT/HCPCS: 80053; 80061; 82306; 83036; 84443; 85025 ==

== ENCOUNTER → 2021-06-14 09:10 | Outpatient (BNVA) | payer MEDICARE, SELFPAY | PROVIDERS: PCP Nurse Practitioner; Visit Provider Nurse Practitioner | DX: E11.42 Type 2 diabetes mellitus with diabetic polyneuropathy (principal); I10 Essential (primary) hypertension; E11.65 Type 2 diabetes mellitus with hyperglycemia; Z79.4 Long term (current) use of insulin | CPT/HCPCS: 80053; 80061; 83036; 84443 ==

== ENCOUNTER → 2021-09-01 08:25 | Outpatient (BNVA) | payer MEDICARE, SELFPAY | PROVIDERS: PCP Nurse Practitioner; Visit Provider Nurse Practitioner | DX: E11.65 Type 2 diabetes mellitus with hyperglycemia (principal); Z79.4 Long term (current) use of insulin | CPT/HCPCS: 80053; 80061; 83036; 84443 ==

== ENCOUNTER → 2021-10-27 10:08 | Outpatient (BNVA) | payer MEDICARE, SELFPAY | PROVIDERS: PCP Nurse Practitioner; Visit Provider Specialist | DX: Z96.641 Presence of right artificial hip joint (principal); Z48.89 Encounter for other specified surgical aftercare; M70.61 Trochanteric bursitis, right hip | CPT/HCPCS: 73522; 99213 ==

== ENCOUNTER → 2021-11-19 10:12 | Outpatient (BNVA) | payer MEDICARE, SELFPAY | PROVIDERS: PCP Nurse Practitioner; Visit Provider Nurse Practitioner | DX: M1A.0320 Idiopathic chronic gout, left wrist, without tophus (tophi) (principal); M51.36 Other intervertebral disc degeneration, lumbar region; K21.9 Gastro-esophageal reflux disease without esophagitis; E11.65 Type 2 diabetes mellitus with hyperglycemia; Z79.4 Long term (current) use of insulin; E11.42 Type 2 diabetes mellitus with diabetic polyneuropathy; G25.81 Restless legs syndrome; E03.9 Hypothyroidism, unspecified; I10 Essential (primary) hypertension; M65.30 Trigger finger, unspecified finger | CPT/HCPCS: 80053; 80061; 82043; 83036; 84443 ==

== ENCOUNTER → 2021-11-22 10:53 | Outpatient (BNVA) | payer MEDICARE, SELFPAY | PROVIDERS: PCP Nurse Practitioner; Visit Provider Specialist | DX: M65.332 Trigger finger, left middle finger (principal) | CPT/HCPCS: 73130; 99213 ==

== ENCOUNTER 2021-11-29 02:33 | Emergency (ER) | payer MEDICARE, SELFPAY ==
[2021-11-29 02:39] VITALS: BP 150/74; PULSE 74; RESP 16; TEMP 36.6; O2SAT 91; BMI 35.3
--- NOTE | 2021-11-29 02:42 | XRR_ITS ---
PROCEDURE INFORMATION: Exam: XR Left Knee Exam date and time: 11/29/2021 3:02 AM Age: 75 years old Clinical indication: Pain; Knee; Left; Additional info: Left knee pain TECHNIQUE: Imaging protocol: Radiologic exam of the Left knee. Views: 3 views. Total images: 7 COMPARISON: No relevant prior studies available. FINDINGS: Bones/joints: Lateral meniscus chondrocalcinosis, suggestive of calcium pyrophosphate deposition arthropathy. No acute fracture nor subluxation. No osseous erosion nor periosteal reaction. Soft tissues: Normal. XR/XR knee LT 3V* [id number] IMPRESSION: 1. Lateral meniscus chondrocalcinosis, suggestive of calcium pyrophosphate deposition arthropathy. 2. No acute osseous pathology.
[2021-11-29 02:45] VITALS: BP 150/74; PULSE 95; RESP 19; O2SAT 93
--- NOTE | 2021-11-29 02:53 | USR_ITS ---
PROCEDURE INFORMATION: Exam: US Duplex Left Lower Extremity Veins, Limited Exam date and time: 11/29/2021 4:09 AM Age: 75 years old Clinical indication: Leg, lower; Left; Patient HX: Voca sudden pop in lt knee and had pain. ; Additional info: Pain swelling lle TECHNIQUE: Imaging protocol: Real-time Duplex ultrasound of the Left Lower Extremity with 2-D hankins scale, color Doppler flow and spectral waveform analysis with image documentation. Limited exam focused on the left lower extremity veins. Total images: 612 COMPARISON: CR (LOW EXM, ) 11/29/2021 3:02 AM FINDINGS: Left deep veins: Unremarkable. The common femoral, femoral, proximal profunda femoral and popliteal veins are patent without thrombus. Normal Doppler waveforms. Normal compressibility and/or augmentation response. Left superficial veins: Unremarkable. Saphenofemoral junction is patent without thrombus. Soft tissues: Small Richmond cyst. US/[place] [id number] IMPRESSION: No evidence of deep vein thrombosis.
--- NOTE | 2021-11-29 04:06 | ED_ITS ---
HPI - Extremity Problem General: Chief complaint: Extremity Injury, Lower Stated complaint: LEFT KNEE PAIN Time Seen by Provider: 11/29/21 02:45 Source: patient History of Present Illness: 75-year-old female who has noted left posterior knee pain for the last 3 to 4 days. Until this point it was nontraumatic knee pain. She will notes that she woke up this morning to use the restroom, stood up, and heard a pop in the posterior knee and had intense pain. She was not able to bear weight on the knee following. She presents by EMS. She denies fever. She denies chest pain or shortness of breath. She does state that more than 20 years ago, she had a DVT in that lower extremity. MD Complaint: extremity pain Onset (ago): hour(s) Pain Consistency: constant Location: left and knee Quality: aching Radiation: proximal Relieving factors: nothing Exacerbating factors: range of motion and weight bearing Associated symptoms: Deny chest pain, fever(s) or rash Review of Systems Const: Denies: fever(s), chills or body aches Eyes: Denies: change in vision Card: Denies: chest pain or palpitations Resp: Denies: dyspnea GI: Denies: abdominal pain, nausea or vomiting : Denies: difficulty voiding Skin/Breast: Denies: rash PFSH ED PFSH: Medical History Acquired hypothyroidism Cerebrovascular ischemia, transient Chronic GERD Chronic kidney disease, unspecified Controlled diabetes mellitus with hyperglycemia, with long-term current use of insulin Controlled type 2 diabetes mellitus with diabetic polyneuropathy Essential (primary) hypertension Gout, unspecified History of mammogram 05/19/2016 Osteoarthritis involving multiple joints on both sides of body Restless legs syndrome Vitamin D deficiency Surgical History History of appendectomy History of cholecystectomy History of colonoscopy 08/16/2015 History of hip surgery Dec 2015 left total hip History of tonsillectomy Status post surgery of both feet Family History Mother Cancer PANCREASE Grandfather Diabetes PATERNAL Father Stroke Heart disease Social History Smoking and tobacco status: never smoked Second hand smoke exposure: No Smoking risk assessment/counseling performed?: No Alcohol intake: never Desire information about alcohol rehabilitation?: No Counseling given: No Desire information about substance/drug rehabilitation?: No Counseling given: No Adopted: No Caregiver/support person: No Lives independently: Yes Household members: none Housing: House Marital status: Number of children: 1 service: No Current occupational status: unemployed Pets and animals: No History of recent travel: No Current gender identity: Female Course Vital Signs: Vital signs: Vital Signs Temperature 97.9 F 11/29/21 02:39 Pulse Rate 95 11/29/21 02:45 Respiratory Rate 19 H 11/29/21 05:05 Blood Pressure 132/77 11/29/21 04:16 Pulse Oximetry 100 11/29/21 05:05 Oxygen Delivery Me thod 11/29/21 04:16 MDM - Extremity (Nontraumatic) Medical Decision Making X-ray shows no fracture. No definite knee effusion. Ultrasound for DVT is negative. It does show the Richmond's cyst, with likely blood present within. She will be placed in a knee immobilizer, given crutches. Outpatient follow-up. Lab Data Radiology Impressions Knee X-Ray 11/29/21 02:42 IMPRESSION: 1. Lateral meniscus chondrocalcinosis, suggestive of calcium pyrophosphate deposition arthropathy. 2. No acute osseous pathology. Venous Duplex 11/29/21 02:53 IMPRESSION: No evidence of deep vein thrombosis. Discharge Plan Discharge Patient Disposition: Home Clinical Impression: Knee derangement syndrome Qualifiers: Laterality: left Qualified Code(s): M23.92 - Unspecified internal derangement of left knee Popliteal cyst Qualifiers: Laterality: left Qualified Code(s): M71.22 - Synovial cyst of popliteal space [Rich[place]], left knee Condition: Stable Prescriptions: New hydrocodone-acetaminophen 5-325 mg tablet 1 tab PO Q8H PRN (Reason: pain) Qty: 7 0RF No Action aspirin [Adult Aspirin Regimen] 81 mg tablet,delayed release (DR/EC) 81 mg PO ONCE Hold Instructions: Resume on 02/05/21. Continue 30 days of full dose aspirin regimen before returning to your normal 81 mg daily. multivitamin [Daily Multi-Vitamin] Tablet 1 tab PO DAILY (DME) Dexcom G6 Transmitter Device See Rx Instructions .ROUTE .MEDSUPPLY Qty: 1 0RF Rx Instructions: daily [place] Dexcom G6 Sensor Device See Rx Instructions .ROUTE .MEDSUPPLY Qty: 9 0RF Rx Instructions: change 10 days [place] pen needle, diabetic [Comfort EZ Pen [place]] 33 gauge x 5/32 needle See Rx Instructions .ROUTE .MEDSUPPLY Qty: 100 5RF Rx Instructions: 2 times daily fluorouracil 0.5 % cream 1 applic topical DAILY 28 Days Qty: 30 0RF allopurinol 100 mg tablet 100 mg PO DAILY Qty: 90 0RF duloxetine [Cymbalta] 20 mg capsule,delayed release(DR/EC) 20 mg PO BID Qty: 180 0RF famotidine [Pepcid] 40 mg tablet 40 mg PO DAILY Qty: 90 0RF Soliqua 100/33 100 unit-33 mcg/mL insulin pen See Rx Instructions SUBCUT QAM Qty: 15 1RF Rx Instructions: up to 40 units SUBCUT every morning; metformin 500 mg tablet extended release 24 hr 1,000 mg PO BID Qty: 360 0RF pregabalin [Lyrica] 75 mg capsule 75 mg PO BID Qty: 60 2RF ropinirole 0.25 mg tablet 0.25 mg PO BID Qty: 180 0RF rosuvastatin 20 mg tablet 20 mg PO .HS Qty: 90 0RF levothyroxine [Synthroid] 175 mcg tablet See Rx Instructions PO DAILY Qty: 90 0RF Rx Instructions: 1 full tab 3 days MWF 1/2 tab on S,T, TH, S PO daily; valsartan [Diovan] 80 mg tablet 80 mg PO DAILY Qty: 90 0RF albuterol sulfate 2.5 mg /3 mL (0.083 %) solution for nebulization 2.5 mg inhalation Q4H PRN (Reason: shortness of breath or wheezing) Qty: 75 2RF budesonide [Pulmicort] 0.5 mg/2 mL suspension for nebulization 0.5 mg inhalation BID Qty: 60 0RF [place] nebulizers Misc See Rx Instructions .ROUTE .MEDSUPPLY Qty: 1 0RF Rx Instructions: As directed ([facility] Disposable nebulizer circuit See Rx Instructions .ROUTE .MEDSUPPLY Qty: 1 0RF Rx Instructions: As directed Discharge Orders: Discharge ED (Routine); Ordered 11/29/21 Ordered By: Wilber Guy Referrals: Dev Rivera, INTERNATIONAL ACCOUNTING MANAGER-C [Primary Care Provider] - 1-3 days Patient Instructions: Richmond Cyst (ED), Knee Pain (ED), Opioid Safety, Pain Management Activity Restrictions/Additional Instructions: Use knee immobilizer and crutches as needed. You may begin to bear weight on the knee when you tolerate. Follow-up with your doctor. Ice for pain. Return for fever, shortness of breath, chest discomfort, worsening pain despite treatment other concerning symptoms. 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
[2021-11-29 04:16] VITALS: BP 132/77; RESP 20; O2SAT 91
[2021-11-29] MEDS: oxyCODONE-APAP 5-325 mg Tablet 2 TAB PO (04:16)
--- NOTE | 2021-11-29 04:17 | PC.NURSE ---
ultrasound at bedside for venous dopplar, family at bedside as well. patient tolerating well.
--- NOTE | 2021-11-29 05:04 | PC.NURSE ---
patient refuses crutches, has walker at home.
[2021-11-29 05:05] VITALS: RESP 19; O2SAT 100
== END 2021-11-29 05:06 | disposition home or self-care (01) ==
PROVIDERS: Emergency Provider Emergency Medicine; PCP Nurse Practitioner
DX: M23.92 Unspecified internal derangement of left knee (principal); M71.22 Synovial cyst of popliteal space [Baker], left knee; Z79.82 Long term (current) use of aspirin; Z79.84 Long term (current) use of oral hypoglycemic drugs; E11.9 Type 2 diabetes mellitus without complications; I10 Essential (primary) hypertension
CPT/HCPCS: 29530; 73562; 93971; 99284

== ENCOUNTER 2021-12-27 10:30 | Outpatient (CLI) | payer MEDICARE, SELFPAY ==
--- NOTE | 2021-12-27 10:46 | MM_ITS ---
WS: [id number] BILATERAL SCREENING DIGITAL TOMOSYNTHESIS MAMMOGRAM WITH CAD HISTORY: Screening exam. COMPARISON: 12/21/2020, 11/11/2019 at 10/16/2018 Bilateral CC and MLO views with tomosynthesis and synthetic mammography submitted. Computer aided det ection analyzed. Breast composition: There are scattered areas of fibroglandular density. No suspicious masses, microc alcifications or architectural distortion. Benign calcifications in each breast. MM/[place] [id number] IMPRESSION: BI-RADS: 2-Benign FOLLOW UP: 1 Year Follow-up
== END 2021-12-27 10:31 | disposition home or self-care (01) ==
LOC: RAD 10:30
PROVIDERS: PCP Nurse Practitioner; Visit Provider Nurse Practitioner
DX: Z12.31 Encounter for screening mammogram for malignant neoplasm of breast (principal)
CPT/HCPCS: 77063; 77067

== ENCOUNTER → 2021-12-29 08:04 | Outpatient (BNVA) | payer MEDICARE, SELFPAY | PROVIDERS: PCP Nurse Practitioner; Referring Provider Nurse Practitioner; Visit Provider Specialist | DX: M17.12 Unilateral primary osteoarthritis, left knee (principal); W18.39XA Other fall on same level, initial encounter; M65.332 Trigger finger, left middle finger | CPT/HCPCS: 73560; 73565; 99213 ==

== ENCOUNTER → 2022-01-17 12:58 | Outpatient (BNVA) | payer MEDICARE, SELFPAY | PROVIDERS: PCP Nurse Practitioner; Visit Provider Specialist | DX: M65.332 Trigger finger, left middle finger (principal) | CPT/HCPCS: 99213 ==

== ENCOUNTER 2022-01-21 07:11 | Day surgery (SDC) | payer MEDICARE, SELFPAY ==
[2022-01-20 11:46] VITALS: BMI 36.2
[2022-01-21] VITALS (8 sets, daily range): BP systolic 88–147; BP diastolic 62–86; PULSE 74–81; RESP 10–23; TEMP 36.1–36.5; O2SAT 91–100
[2022-01-21] MEDS: sodium chloride 0.9% 1,000 ML 30 ML IV (07:35)
--- NOTE | 2022-01-21 07:37 | SUR.OPER ---
0609 asked Marla Gamez RN about acetaminophen 1gm not given during preop, and nurse replied that she did not want it.
[2022-01-21 07:43] LABS: Glucose Point of Care 130 mg/dL (70-110)
--- NOTE | 2022-01-21 08:00 | P.HPUD_ITS ---
Surgery/Procedure H&P Update DATE OF PROCEDURE: January 21, 2022 DATE H&P PERFORMED: 01/17/22 H&P UPDATE INFORMATION: I have reviewed H&P completed within last 30 days, I have examined patient prior to procedure, No changes to prior documentation and H&P is in [facility] EMR on date indicated PREOP DIAGNOSIS: Left long finger triggering PLANNED PROCEDURE: Operation Date: 01/21/22 08:30 Proposed Procedures p LEFT LONG FINGER TRIGGER FINGER RELEASE [id number],M65.30(Left) - Elizabeth Singleton MD Related Problem List Diagnoses (1) Trigger finger, left middle finger:
--- NOTE | 2022-01-21 08:01 | ANES.PREANE2 ---
Pre-Anesthetic Assessment Height/Weight: Height 1.57 m Weight 89.811 kg Temp Pulse Resp BP Pulse Ox O2 Del Method 97.6 F 76 16 147/70 96 01/21/22 07:28 01/21/22 07:28 01/21/22 07:28 01/21/22 07:28 01/21/22 07:28 01/21/22 07:28 Preop Diagnosis: Left long finger triggering Operation Date: 01/21/22 08:30 Proposed Procedures p LEFT LONG FINGER TRIGGER FINGER RELEASE [id number],M65.30(Left) - Elizabeth Singleton MD Familial anesthetic complications: none Was Beta Carlos taken within 24 hours: N/A Was Clonidine taken within 24 hours: N/A Last intake: Intake Last Liquid Date 01/20/22 Last Liquid Time 18:00 Last Solid Date 01/20/22 Last Solid Time 18:00 Social No alcohol and No tobacco Exam alert, oriented x 3, clear to auscultation bilaterally and regular rate & rhythm Airway Submandibular: within normal limits Cervical ROM: within normal limits Mallampati: Class II Dentition: full CV/HEM Hypertension Chronic Renal Insufficiency Metabolic Diabetes Mellitus, Hyperlipidemia, Morbid Obesity and Thyroid Disease [facility] Fibromyalgia and Osteoarthritis/DJD Anesthetic Plan ASA status: 3 Anesthesia: Choice Medications/Allergies Home Medications Medication Instructions Recorded Confirmed Last Taken Type aspirin 81 mg tablet,delayed 81 mg PO BID 03/21/19 01/20/22 01/13/22 History release (Adult Aspirin Regimen) multivitamin (Daily Multi-Vitamin 1 tab PO DAILY 07/24/19 01/21/22 01/20/22 History tablet) blood-glucose sensor (Dexcom G6 #9 ea 06/29/20 01/18/22 Unknown Rx Sensor device) blood-glucose transmitter (Dexcom #1 ea 06/29/20 01/18/22 Unknown Rx G6 Transmitter device) Disposable nebulizer circuit #1 ea 03/04/21 01/18/22 Unknown Rx nebulizers #1 ea 03/04/21 01/18/22 Unknown Rx pen needle, diabetic 33 gauge x #100 ea 06/18/21 01/18/22 Unknown Rx 5/32 (Comfort EZ Pen [place]) Synthroid 175 mcg tablet See Rx Instructions PO DAILY #90 11/19/21 01/21/22 01/20/22 Rx (levothyroxine) tabs allopurinol 100 mg tablet 100 mg PO DAILY #90 tabs 11/19/21 01/21/22 01/20/22 Rx duloxetine 20 mg capsule,delayed 20 mg PO BID #180 caps 11/19/21 01/21/22 01/20/22 Rx release (Cymbalta) famotidine 40 mg tablet (Pepcid) 40 mg PO DAILY #90 tabs 11/19/21 01/21/22 01/20/22 Rx insulin glargine 100 See Rx Instructions SUBCUT QAM #15 11/19/21 01/21/22 01/20/22 Rx unit-lixisenatide 33 mcg/mL mL subcutaneous pen (Soliqua 100/33) metformin 500 mg tablet,extended 1,000 mg PO BID #360 tabs 11/19/21 01/21/22 01/20/22 Rx release 24 hr pregabalin 75 mg capsule (Lyrica) 75 mg PO BID #60 caps 11/19/21 01/21/22 01/20/22 Rx ropinirole 0.25 mg tablet 0.25 mg PO BID #180 tabs 11/19/21 01/21/22 01/20/22 Rx rosuvastatin 20 mg tablet 20 mg PO .HS #90 tabs 11/19/21 01/21/22 01/20/22 Rx valsartan 80 mg tablet (Diovan) 80 mg PO DAILY #90 tabs 11/19/21 01/21/22 01/20/22 Rx cholecalciferol (vitamin D3) 25 25 mcg PO DAILY 01/20/22 01/21/22 01/20/22 History mcg (1,000 unit) capsule (Vitamin D3) zinc 50 mg tablet 50 mg PO DAILY 01/20/22 01/21/22 01/20/22 History Allergies Allergy/AdvReac Type Severity Reaction Status Date / Time naproxen [From Aleve] Allergy Severe Hives and Verified 01/20/22 11:35 itching Penicillins Allergy Intermediate Rash Verified 01/20/22 11:35 [facility] Anesthesia Medical History Acquired hypothyroidism Cerebrovascular ischemia, transient Chronic GERD Chronic kidney disease, unspecified Controlled diabetes mellitus with hyperglycemia, with long-term current use of insulin Controlled type 2 diabetes mellitus with diabetic polyneuropathy Essential (primary) hypertension Gout, unspecified History of mammogram 05/19/2016 Osteoarthritis involving multiple joints on both sides of body Restless legs syndrome Vitamin D deficiency Surgical History History of appendectomy History of cholecystectomy History of colonoscopy 08/16/2015 History of hip surgery Dec 2015 left total hip History of tonsillectomy Status post surgery of both feet Family History Mother Cancer PANCREASE Grandfather Diabetes PATERNAL Father Stroke Heart disease Social History Smoking and tobacco status: never smoked Second hand smoke exposure: No Smoking risk assessment/counseling performed?: No Alcohol intake: never Desire information about alcohol rehabilitation?: No Counseling given: No Desire information about substance/drug rehabilitation?: No Counseling given: No Adopted: No Caregiver/support person: No Lives independently: Yes Household members: none Housing: House Marital status: Number of children: 1 service: No Current occupational status: unemployed Pets and animals: No History of recent travel: No Current gender identity: Female Data Anesthesia Cardiac Studies: No Data to Display
[2022-01-21] MEDS: acetaminophen 1,000 MG/100 ML PIGGYBACK 400 MG IV (08:20)
[2022-01-21] MEDS: clindamycin 600 MG/50 ML PREMIX 100 MG IV (08:28)
--- NOTE | 2022-01-21 09:19 | P.OP_ITS ---
Operative Report Date of procedure: January 21, 2022 Pre-op diagnosis: Left long finger triggering Post-op diagnosis: Left long finger triggering Procedure done: Left long finger trigger release Pathology: none sent Surgeon: Elizabeth Sing[facility] Counselor: None Anesthesia: General (Per LMA, ASA 3) Estimated blood loss (mL): 3 Tourniquet time (min): 13 (At 250 mmHg) IV fluids (mL): 400 Urine output (mL): 0 (No Bell) Complications: None Findings: Normal-appearing long finger tendons with tight A1 mis Condition: stable Disposition: PACU (Then return to same-day surgery for discharge to home) Brief History: Established 75 year old female here today for release of her left long finger triggering. She describes that her middle finger of her left hand often gets stuck and catches. When seen in the office, risks and complications were discussed. Consents were signed. Questions were answered. Procedure: Patient was brought to the operating theater. She was placed on the operating room table. General anesthesia, ASA 3, was administered per LMA uneventfully. Patient tolerated it well. Patient received 600 mg of Cleocin prophylactically preoperatively. A tourniquet was placed high on the arm and was elevated following exsanguination of the arm. Tourniquet time was 13 minutes. Surgical pause was performed prior to commencement of the surgical procedure. At the time of the surgical pause we identified the site and side of surgery. We also identified the patient's identity and appropriate administration of IV antibiotics, Cleocin 600 mg. Following the surgical pause, an incision was made along the distal palmar crease beneath the long finger. Dissection continued through the skin to the subcutaneous tissues using a scalpel. Blunt dissection was then utilized to spread soft tissues and allow access to the A1 mis. It was then incised longitudinally and sharply using a knife. This was accomplished without difficulty and atraumatically. Once the A1 mis was released, tendons were brought up out of the wound and evaluated. There were no gross masses on the tendons. Tendons were returned to normal position. We then irrigated the wound and subsequently closed it with 3-0 nylon with an interrupted mattress type suture. Following closure of the wound, the wound was injected with 3 mL of bupivacaine into the subcutaneous tissues as a local anesthetic. Sterile dressing was then placed consisting of Dermabond, OpSite, fluffed fluffs, sterile soft roll, and an Musa wrap. The patient was returned to recovery in satisfactory condition. She will be discharged home to follow-up with me in the office. There were no complications and no specimens. Related Problem List Diagnoses (1) Trigger finger, left middle finger:
--- NOTE | 2022-01-21 15:05 | ANE.PACU2 ---
Inpatient post-anesthesia follow up: Airway intact: Yes Vital signs: Temperature 97.7 F Pulse Rate 76 Respiratory Rate 16 Blood Pressure 138/86 Pulse Oximetry 93 Oxygen Delivery Me thod Room Air Oxygen Flow Rate 5 Fraction of Inspir ed Oxygen Hydration adequate: Yes Nausea and vomiting: No Pain level: 2 Mental status: Baseline
== END 2022-01-21 10:05 | disposition home or self-care (01) ==
PROVIDERS: PCP Nurse Practitioner; Visit Provider Specialist
PROC: (CPT 26055; principal; 2022-01-21 08:20)
DX: M65.332 Trigger finger, left middle finger (principal); E78.5 Hyperlipidemia, unspecified; E66.01 Morbid (severe) obesity due to excess calories; Z68.36 Body mass index [BMI] 36.0-36.9, adult; M79.7 Fibromyalgia; Z79.82 Long term (current) use of aspirin; E03.9 Hypothyroidism, unspecified; Z86.73 Personal history of transient ischemic attack (TIA), and cerebral infarction without residual deficits; E11.42 Type 2 diabetes mellitus with diabetic polyneuropathy
CPT/HCPCS: 26055; 36416; 82962; J0131; J1100; J2405; J2704; J3010; J3490; J7030

== ENCOUNTER 2022-01-24 13:17 | Outpatient (CLI) | payer MEDICARE, SELFPAY ==
--- NOTE | 2022-01-24 13:45 | MR_ITS ---
WS: [id number] MRI LEFT KNEE HISTORY: L knee injury, positive Glenn's, eval for meniscal tear COMPARISON: Radiograph 12/29/2021 Anterior cruciate ligament: Intact. There is fluid surrounding the ACL but no full-thickness tear. Th e ligament is very thin superiorly. There could be a very small partial tear. Posterior cruciate ligament: Intact. Medial collateral ligament: Fluid surrounding the MCL greatest below the joint. There is no full-thic kness tear. Posterior lateral corner structures: Intact. Medial menisci: Intrasubstance degeneration in the posterior horn. At the meniscal root there is incr eased T2 signal consistent with a tear seen on the sagittal and coronal images also. Tear extends fro m the superior to the inferior articular surface. Lateral meniscus: Intact. Normal signal, size and shape. Extensor mechanism: Distal quadriceps tendon and patellar tendons are intact. Fluid and soft tissue: Small suprapatellar joint effusion. Moderate-sized Richmond's cyst. Slightly lobu lated cyst extends over length of 5.7 cm. Osseous and articular structures: Patellofemoral compartment: Mild narrowing of patellofemoral joint space with chondromalacia. No frac ture or marrow edema. Medial compartment: Moderate narrowing medial compartment. Loss of joint space and cartilage. Moderat e amount of marrow edema along the tibial plateau extending across the midline. No fracture. No edema in the femoral condyle. Lateral compartment: Mild narrowing of the lateral compartment. Mild thinning and fissuring of the ca rtilage. No marrow edema. MR/MR knee LT wo con* [id number] IMPRESSION: 1. Marrow edema along the medial tibial plateau extends to the midline. 2. Complex tear involving the meniscal root, posterior horn medial meniscus. 3. Moderate-sized Richmond's cyst. 4. Mild MCL sprain. 5. Predominantly intact ACL. There is very mild thickening of the most proxima l ACL but the majority of the fibers are still present. Partial tear is not exc luded. 6. Small joint effusion. 7. 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
== END 2022-01-24 13:18 | disposition home or self-care (01) ==
PROVIDERS: PCP Nurse Practitioner; Visit Provider Specialist
DX: S83.232A Complex tear of medial meniscus, current injury, left knee, initial encounter; X58.XXXA Exposure to other specified factors, initial encounter; M22.42 Chondromalacia patellae, left knee; M25.462 Effusion, left knee; M71.22 Synovial cyst of popliteal space [Baker], left knee
CPT/HCPCS: 73721

== ENCOUNTER → 2022-01-26 10:58 | Outpatient (BNVA) | payer MEDICARE, SELFPAY | PROVIDERS: PCP Nurse Practitioner; Visit Provider Specialist | DX: S83.232A Complex tear of medial meniscus, current injury, left knee, initial encounter (principal); M71.22 Synovial cyst of popliteal space [Baker], left knee; S83.412A Sprain of medial collateral ligament of left knee, initial encounter; M25.462 Effusion, left knee; M22.42 Chondromalacia patellae, left knee; X58.XXXA Exposure to other specified factors, initial encounter; Z98.890 Other specified postprocedural states | CPT/HCPCS: 99213 ==

== ENCOUNTER → 2022-02-14 09:41 | Outpatient (BNVA) | payer MEDICARE, SELFPAY | PROVIDERS: PCP Nurse Practitioner; Visit Provider Nurse Practitioner | DX: I10 Essential (primary) hypertension (principal); E11.65 Type 2 diabetes mellitus with hyperglycemia; Z79.4 Long term (current) use of insulin; E11.42 Type 2 diabetes mellitus with diabetic polyneuropathy | CPT/HCPCS: 80053; 80061; 83036; 84443 ==

== ENCOUNTER → 2022-04-01 09:46 | Outpatient (BNVA) | payer MEDICARE, SELFPAY | PROVIDERS: PCP Nurse Practitioner; Visit Provider Nurse Practitioner | DX: E11.65 Type 2 diabetes mellitus with hyperglycemia (principal); Z79.4 Long term (current) use of insulin | CPT/HCPCS: 81000 ==

== ENCOUNTER 2022-04-26 11:04 | Outpatient (CLI) | payer MEDICARE, SELFPAY ==
--- NOTE | 2022-04-26 11:00 | US_ITS ---
WS: [email or web address] RENAL ULTRASOUND HISTORY: R10.9 - Unspecified abdominal pain COMPARISON: 07/06/2012 TECHNIQUE: 2-D and color Doppler imaging of the kidney submitted. Right kidney: 9.5 cm x 4.8 cm x 6.2 cm. Normal size. Marked increased echogenicity. Decreased cortical medullary differentiation. No hydronep hrosis or solid mass. The entire kidney is poorly visualized. Left kidney: 12.4 cm x 4.6 cm x 4.8 cm. Normal size kidney. Poor cortical medullary differentiation. Large cystic mass extends from the centr al renal pelvis medially from the pelvis. The entire mass measures 8.3 x 5.1 x 5.5 cm. No calyceal di latation. No solid mass identified. Aorta: Normal. Urinary Bladder: Minimally distended urinary bladder. US/US renal BI* [id number] IMPRESSION: 1. Moderate to severe medical renal disease RIGHT kidney. There is no hydronep hrosis or solid mass. 2. Mild chronic medical renal disease LEFT kidney with a large central parapel bee cyst.
== END 2022-04-26 11:05 | disposition home or self-care (01) ==
LOC: RAD 11:04
PROVIDERS: PCP Nurse Practitioner; Visit Provider Nurse Practitioner
DX: R10.9 Unspecified abdominal pain (principal); E11.42 Type 2 diabetes mellitus with diabetic polyneuropathy; N18.9 Chronic kidney disease, unspecified
CPT/HCPCS: 76770

== ENCOUNTER → 2022-05-16 08:25 | Outpatient (BNVA) | payer MEDICARE, SELFPAY | PROVIDERS: PCP Nurse Practitioner; Visit Provider Nurse Practitioner | DX: I10 Essential (primary) hypertension (principal); E11.65 Type 2 diabetes mellitus with hyperglycemia; Z79.4 Long term (current) use of insulin; E11.42 Type 2 diabetes mellitus with diabetic polyneuropathy | CPT/HCPCS: 80053; 80061; 83036; 84443 ==

== ENCOUNTER → 2022-06-20 09:36 | Outpatient (BNVA) | payer MEDICARE, SELFPAY | PROVIDERS: PCP Nurse Practitioner; Visit Provider Nurse Practitioner | DX: E11.65 Type 2 diabetes mellitus with hyperglycemia (principal); Z79.4 Long term (current) use of insulin | CPT/HCPCS: 82043 ==

== ENCOUNTER → 2022-06-29 10:09 | Outpatient (BNVA) | payer MEDICARE, SELFPAY | PROVIDERS: PCP Nurse Practitioner; Visit Provider Specialist | DX: Z96.641 Presence of right artificial hip joint (principal); Z48.89 Encounter for other specified surgical aftercare | CPT/HCPCS: 73502; 99213 ==

== ENCOUNTER → 2022-07-21 10:14 | Outpatient (BNVA) | payer MEDICARE, SELFPAY | PROVIDERS: PCP Nurse Practitioner; Visit Provider Nurse Practitioner | DX: E11.42 Type 2 diabetes mellitus with diabetic polyneuropathy (principal); E55.9 Vitamin D deficiency, unspecified; Z79.4 Long term (current) use of insulin; I10 Essential (primary) hypertension; E11.65 Type 2 diabetes mellitus with hyperglycemia | CPT/HCPCS: 80053; 80061; 82306; 83036; 84443 ==

== ENCOUNTER → 2022-07-26 10:49 | Outpatient (BNVA) | payer MEDICARE, SELFPAY | PROVIDERS: PCP Nurse Practitioner; Visit Provider Nurse Practitioner | DX: M1A.0320 Idiopathic chronic gout, left wrist, without tophus (tophi) (principal); M51.36 Other intervertebral disc degeneration, lumbar region; K21.9 Gastro-esophageal reflux disease without esophagitis; Z79.4 Long term (current) use of insulin; E11.42 Type 2 diabetes mellitus with diabetic polyneuropathy; E03.9 Hypothyroidism, unspecified; I10 Essential (primary) hypertension; M25.561 Pain in right knee; M25.512 Pain in left shoulder; R35.0 Frequency of micturition; J31.0 Chronic rhinitis; E11.65 Type 2 diabetes mellitus with hyperglycemia | CPT/HCPCS: 73030; 73562 ==

== ENCOUNTER → 2022-08-02 15:26 | Outpatient (BNVA) | payer MEDICARE, SELFPAY | PROVIDERS: PCP Nurse Practitioner; Visit Provider Family Medicine | DX: E11.65 Type 2 diabetes mellitus with hyperglycemia (principal); Z79.4 Long term (current) use of insulin; N39.0 Urinary tract infection, site not specified | CPT/HCPCS: 81000; 87077; 87086; 87184 ==

== ENCOUNTER → 2022-10-10 08:45 | Outpatient (BNVA) | payer MEDICARE, SELFPAY | PROVIDERS: PCP Nurse Practitioner; Visit Provider Nurse Practitioner | DX: E11.65 Type 2 diabetes mellitus with hyperglycemia (principal); Z79.4 Long term (current) use of insulin; E11.42 Type 2 diabetes mellitus with diabetic polyneuropathy; E55.9 Vitamin D deficiency, unspecified | CPT/HCPCS: 80053; 80061; 82306; 83036; 84443 ==

== ENCOUNTER 2022-12-28 08:45 | Outpatient (CLI) | payer MEDICARE, SELFPAY ==
--- NOTE | 2022-12-28 08:50 | MM_ITS ---
WS: [email or web address] Bilateral screening 3D tomosynthesis digital mammogram, 12/28/2022 Clinical Data: Z12.31 - Encounter for screening mammogram for malignant ... Comparison: 12/27/2021, 12/21/2020, 11/11/2019, 10/16/2018, 09/21/2017, 05/19/2016, 04/28/2015, 04/11/2014, , 01/10/2012, 04/29/2009, 04/11/2008, 04/06/2007, 03/31/2006. Findings: The breast parenchymal pattern shows fibroglandular tissue. No spiculated masses or clustered calcifi cations are seen. There are no secondary signs of carcinoma. Impression: 1. Negative bilateral mammogram unchanged. 2. Recommend annual screening mammograms. MM/[place] [id number] BIRADS: 1-Negative FOLLOW UP: 1 Year Follow-up The CAD electric distribution checker was used.
== END 2022-12-28 08:46 | disposition home or self-care (01) ==
LOC: RAD 08:46
PROVIDERS: PCP Nurse Practitioner; Visit Provider Nurse Practitioner
DX: Z12.31 Encounter for screening mammogram for malignant neoplasm of breast (principal)
CPT/HCPCS: 77063; 77067

== ENCOUNTER → 2023-01-09 08:27 | Outpatient (BNVA) | payer MEDICARE, SELFPAY | PROVIDERS: PCP Nurse Practitioner; Visit Provider Nurse Practitioner | DX: I10 Essential (primary) hypertension (principal); E11.65 Type 2 diabetes mellitus with hyperglycemia; Z79.4 Long term (current) use of insulin; E11.42 Type 2 diabetes mellitus with diabetic polyneuropathy | CPT/HCPCS: 80053; 80061; 83036; 84443 ==

== ENCOUNTER → 2023-02-17 09:26 | Outpatient (BNVA) | payer MEDICARE, SELFPAY | PROVIDERS: PCP Nurse Practitioner; Visit Provider Nurse Practitioner | DX: Z96.641 Presence of right artificial hip joint (principal); M70.61 Trochanteric bursitis, right hip | CPT/HCPCS: 73502; 99214 ==

== ENCOUNTER 2023-02-27 06:00 | Outpatient (RCR) | payer MEDICARE, SELFPAY | END 2023-03-12 23:59 | disposition home or self-care (01) | LOC: APT 06:00 | PROVIDERS: Visit Provider Nurse Practitioner | DX: M25.551 Pain in right hip (principal) | CPT/HCPCS: 97110; 97161; 97530 ==

== ENCOUNTER 2023-03-13 06:00 | Outpatient (RCR) | payer OTHER, SELFPAY | END 2023-04-12 23:59 | disposition home or self-care (01) | LOC: APT 06:00 | PROVIDERS: Visit Provider Nurse Practitioner | DX: M25.551 Pain in right hip (principal) | CPT/HCPCS: 97110; 97530 ==

== ENCOUNTER → 2023-03-20 13:27 | Outpatient (BNVA) | payer OTHER, SELFPAY | PROVIDERS: Visit Provider Nurse Practitioner | DX: M25.571 Pain in right ankle and joints of right foot (principal); S82.409A Unspecified fracture of shaft of unspecified fibula, initial encounter for closed fracture; X58.XXXA Exposure to other specified factors, initial encounter | CPT/HCPCS: 73610 ==

== ENCOUNTER 2023-03-21 15:51 | Outpatient (CLI) | payer OTHER, SELFPAY | END 2023-03-21 15:52 | disposition home or self-care (01) | LOC: SPT 15:51 | PROVIDERS: Visit Provider Podiatrist Foot & Ankle Surgery | DX: Z46.89 Encounter for fitting and adjustment of other specified devices (principal); S82.831D Other fracture of upper and lower end of right fibula, subsequent encounter for closed fracture with routine healing; X58.XXXD Exposure to other specified factors, subsequent encounter | CPT/HCPCS: 97760; L4361 ==

== ENCOUNTER → 2023-04-05 10:24 | Outpatient (BNVA) | payer MEDICARE, SELFPAY | PROVIDERS: PCP Nurse Practitioner; Visit Provider Podiatrist Foot & Ankle Surgery | DX: S82.831A Other fracture of upper and lower end of right fibula, initial encounter for closed fracture (principal); E11.9 Type 2 diabetes mellitus without complications; X58.XXXA Exposure to other specified factors, initial encounter | CPT/HCPCS: 73610; 80053; 80061; 83036; 84443 ==

== ENCOUNTER 2023-04-11 12:12 | Outpatient (CLI) | payer MEDICARE, SELFPAY ==
--- NOTE | 2023-04-11 12:45 | US_ITS ---
WS: [email or web address] Complete ABDOMINAL ULTRASOUND HISTORY: N18.9 - Chronic kidney disease, unspecified COMPARISON: Renal ultrasound 04/26/2022 Liver: 15.0 cm in length. Normal size liver. Coarse echotexture. No mass. Portal Vein: Normal hepatopetal flow with monophasic waveform. Gallbladder: Prior cholecystectomy. CBD: 0.3 cm Pancreas: Not visualized. Right kidney: 8.9 cm x 3.7 x 4.8 cm. Cortex: 0.8 cm. Low normal size kidney. Increased echogenicity. No mass. Left kidney: 9.2 cm x 3.4 cm x 5.1 cm. Cortex: 1.0 cm. Low normal size kidney. There is a large LEFT parapelvic cyst. The calyces do not appear dilated. Spleen: Normal. Aorta and IVC: Poorly visualized. Impression: 1. Prior cholecystectomy. 2. Low normal size kidneys. Mild chronic medical renal disease. Chronic medical renal disease does n ot appear as significant as on the prior renal ultrasound of 04/26/2022. 3. There is a large cystic mass centered in the LEFT renal pelvis extending extrarenal. Suspect this isn't dilated parapelvic cyst. No calyceal dilatation.
== END 2023-04-11 12:13 | disposition home or self-care (01) ==
LOC: RAD 12:12
PROVIDERS: PCP Nurse Practitioner; Visit Provider Nurse Practitioner
DX: N18.9 Chronic kidney disease, unspecified (principal); N28.1 Cyst of kidney, acquired; Z90.49 Acquired absence of other specified parts of digestive tract
CPT/HCPCS: 76700

== ENCOUNTER → 2023-05-08 13:39 | Outpatient (BNVA) | payer MEDICARE, SELFPAY | PROVIDERS: PCP Nurse Practitioner; Visit Provider Nurse Practitioner | DX: Z96.641 Presence of right artificial hip joint (principal); M70.61 Trochanteric bursitis, right hip; S82.431D Displaced oblique fracture of shaft of right fibula, subsequent encounter for closed fracture with routine healing; X58.XXXD Exposure to other specified factors, subsequent encounter | CPT/HCPCS: 73502; 73610; 99213 ==

== ENCOUNTER 2023-05-09 11:29 | Outpatient (CLI) | payer MEDICARE, SELFPAY | END 2023-05-09 11:30 | disposition home or self-care (01) | LOC: SPT 11:30 | PROVIDERS: PCP Nurse Practitioner; Visit Provider Podiatrist Foot & Ankle Surgery | DX: Z46.89 Encounter for fitting and adjustment of other specified devices (principal); S82.431D Displaced oblique fracture of shaft of right fibula, subsequent encounter for closed fracture with routine healing; X58.XXXD Exposure to other specified factors, subsequent encounter | CPT/HCPCS: L1902 ==

== ENCOUNTER → 2023-06-29 08:34 | Outpatient (BNVA) | payer MEDICARE, SELFPAY | PROVIDERS: PCP Nurse Practitioner; Visit Provider Nurse Practitioner | DX: E11.9 Type 2 diabetes mellitus without complications (principal); E55.9 Vitamin D deficiency, unspecified | CPT/HCPCS: 80053; 80061; 82306; 83036; 84443; 85025 ==

== ENCOUNTER 2023-07-27 10:47 | Outpatient (CLI) | payer MEDICARE, SELFPAY ==
--- NOTE | 2023-07-27 11:00 | FL_ITS ---
WS: [email or web address] Modified barium swallow, 07/27/2023 Clinical Data: R13.10 - Dysphagia, unspecified Comparison: None. Fluoroscopy time: 2min [id number] # of spot films: 0 Findings: The patient did show premature spillage. There is no significant pharyngeal residue. No aspiration oc curred but there is a trace of penetration. The patient propel the barium tablet from the oral pharyn x into the hypopharynx and finally through the esophagus into the stomach. FL/FL barium swallow modifd [id number] Impression: 1. Minimal premature spillage. 2. Trace penetration but no aspiration.
== END 2023-07-27 10:48 | disposition home or self-care (01) ==
LOC: RAD 10:47
PROVIDERS: PCP Nurse Practitioner; Visit Provider Nurse Practitioner
DX: R13.10 Dysphagia, unspecified (principal)
CPT/HCPCS: 74230; 92611

== ENCOUNTER 2023-10-16 10:33 | Outpatient (CLI) | payer MEDICARE, SELFPAY ==
--- NOTE | 2023-10-16 11:00 | US_ITS ---
WS: [email or web address] Complete ABDOMINAL ULTRASOUND HISTORY: N18.9 - Chronic kidney disease, unspecified COMPARISON: 04/11/2023, 04/26/2022 Liver: 14.7 cm in length. Normal size liver and echogenicity. No bile duct dilatation or mass. Portal Vein: Normal hepatopetal flow with monophasic waveform. Gallbladder: Prior cholecystectomy. CBD: 0.3 cm Pancreas: Normal size and echogenicity. Right kidney: 8.8 cm x 4.2 x 5.8 cm. Cortex:1.1 cm. Mild atrophy with mild cortical medical renal disease. No obstruction. Left kidney: 8.8 cm x 4.6 cm x 5.2 cm. Cortex: 1.3 cm. Mild atrophy. There is a large cyst from the central kidney extending medially which has been previou sly described. Cyst measures 8.1 x 5.4 x 5.5 cm. Spleen: 10.2 cm. Normal size and echogenicity. Aorta and IVC: Unremarkable abdominal aorta and IVC. US/US abdomen complete* [id number] Impression: 1. Prior cholecystectomy. 2. Large cyst extending medially from the LEFT kidney measures 8.1 x 5.4 x 5.5 cm. Similar to the prior study. 3. Mild bilateral renal atrophy.
== END 2023-10-16 10:34 | disposition home or self-care (01) ==
LOC: RAD 10:35
PROVIDERS: PCP Nurse Practitioner; Visit Provider Nurse Practitioner
DX: N18.9 Chronic kidney disease, unspecified (principal); N28.1 Cyst of kidney, acquired; Z90.49 Acquired absence of other specified parts of digestive tract
CPT/HCPCS: 76700

== ENCOUNTER → 2023-12-13 08:40 | Outpatient (BNVA) | payer MEDICARE, SELFPAY | PROVIDERS: PCP Nurse Practitioner; Visit Provider Nurse Practitioner | DX: E11.9 Type 2 diabetes mellitus without complications (principal) | CPT/HCPCS: 80053; 80061; 82607; 83036; 84443; 85025 ==

== ENCOUNTER 2024-01-23 12:58 | Outpatient (CLI) | payer MEDICARE, SELFPAY ==
--- NOTE | 2024-01-23 13:00 | MM_ITS ---
WS: [email or web address] Bilateral screening 3D tomosynthesis digital mammogram, 01/23/2024 1:00 PM Clinical Data: Z12.31 - Encounter for screening mammogram for malignant ... Comparison: 12/28/2022, 12/27/2021, 12/21/2020, 11/11/2019, 10/16/2018, 09/21/2017, 05/19/2016, 04/28/2015, 04/11/2014, 03/14/2013, 01/10/2012, 04/29/2009, 04/11/2008, 04/06/2007, 03/31/2006. Findings: No spiculated masses or clustered calcifications are seen. There are no secondary signs of carcinoma . MM/MM [facility] BI tomosynthesis [id number] Impression: Negative bilateral mammogram unchanged. Recommend annual screening mammograms. BIRADS: 1 - Negative. FOLLOW UP: US Guided Biopsy Recommended DENSITY: There are scattered areas of fibroglandular density. The CAD repairer and checker was used
== END 2024-01-23 12:59 | disposition home or self-care (01) ==
LOC: MOBLMAM 12:59
PROVIDERS: PCP Nurse Practitioner; Visit Provider Nurse Practitioner
DX: Z12.31 Encounter for screening mammogram for malignant neoplasm of breast (principal)
CPT/HCPCS: 77063; 77067

== ENCOUNTER 2024-02-02 13:24 | Emergency (ER) | payer MEDICARE, SELFPAY ==
[2024-02-02] VITALS (7 sets, daily range): BP systolic 155–199; BP diastolic 51–98; PULSE 66–79; RESP 16–18; TEMP 36.4; O2SAT 94–97; BMI 33.1
--- NOTE | 2024-02-02 13:28 | ECG_ITS ---
[facility] Pat Name: Janneth Salamanca Department: Room: Gender: Female Compensation Director: : [id number] Requested By: Andry Cowan Order Number: [id number] Kemal MD: Nico Kim M.D. Measurements Intervals [place] Rate: 72 P: 38 MS: 138 QRS: -28 QRSD: 93 T: -15 QT: 343 QTc: 376 Interpretive Statements SINUS RHYTHM LOW QRS VOLTAGE IN PRECORDIAL LEADS [QRS DEFLECTION < 1.0 mV IN CHEST LEADS] POSSIBLE ANTERIOR MYOCARDIAL INFARCTION , OF INDETERMINATE AGE [30 ms Q WAVE IN V3/V4, OR R < 0.2 mV IN V4] Compared to ECG 12/22/2020 09:48:36 No significant changes Electronically Signed On 02-03-2024 10:22:59 FRAME RUNNER by Nico Kim M.D. [email or web address]
--- NOTE | 2024-02-02 14:41 | XR_ITS ---
WS: [email or web address] Exam: XR chest 1V portable [id number] Date/Time of Exam: 02/02/2024 2:45 PM Reason For Exam: Chest pain Comparison 05/07/2018. The lungs are clear and fully expanded. Normal cardiomediastinal silhouette and regional bony elements. No pleural effusion. XR/XR chest 1V portable [id number] IMPRESSION: 1. Normal chest.
--- NOTE | 2024-02-02 14:43 | ED_ITS ---
HPI - Chest Pain 2 General: Chief Complaint: Chest Pain Stated Complaint: CP Time Seen by Provider: 02/02/24 14:38 History of Present Illness: 78-year-old female with a history of sera betes, hypertension and hypothyroidism who presents the emergency room after having had some chest pain this afternoon. She was getting her hair done and under the dryer when it started. It lasted probably 45 minutes she says. It resolved spontaneously. It was in her central chest and radiated into her back. She said it felt like a tingling and an ache. She does not have any cardiac history. No lower extremity swelling. Currently no chest pain. No shortness of breath. No fevers. No cough. No abdominal pain. No nausea or vomiting. Related Data Home Medications Medication Instructions Recorded Confirmed aspirin 81 mg tablet,delayed 81 mg PO BID 03/21/19 02/02/24 release (Adult Aspirin Regimen) multivitamin (Daily Multi-Vitamin 1 tab PO DAILY 07/24/19 02/02/24 tablet) cholecalciferol (vitamin D3) 25 25 mcg PO DAILY 01/20/22 02/02/24 mcg (1,000 unit) capsule (Vitamin D3) fluticasone propionate 50 1 spray intranasal Q12H PRN 02/02/24 02/02/24 mcg/actuation nasal allergies spray,suspension (Flonase Allergy Relief) Previous Rx's Medication Instructions Recorded Disposable nebulizer circuit #1 ea 03/04/21 nebulizers #1 ea 03/04/21 pen needle, diabetic 33 gauge x #100 ea 06/18/21 5/32 (Comfort EZ Pen [place]) wheelchair #1 ea 03/20/23 CAM WALKER #1 ea 03/21/23 ASO #1 ea 05/08/23 Synthroid 175 mcg tablet See Rx Instructions PO DAILY #90 10/03/23 (levothyroxine) tabs acarbose 25 mg tablet 25 mg PO TID #270 tabs 10/03/23 allopurinol 100 mg tablet 100 mg PO DAILY #90 tabs 10/03/23 duloxetine 30 mg capsule,delayed 30 mg PO BID #180 caps 10/03/23 release (Cymbalta) famotidine 40 mg tablet (Pepcid) 40 mg PO DAILY #90 tabs 10/03/23 metformin 500 mg tablet,extended 1,000 mg (2 x 500 mg) PO BID #360 10/03/23 release 24 hr tabs pregabalin 75 mg capsule (Lyrica) 75 mg PO BID #180 caps 10/03/23 rosuvastatin 20 mg tablet 20 mg PO .HS #90 tabs 10/03/23 valsartan 80 mg tablet (Diovan) 80 mg PO .IN AM #90 tabs 10/03/23 insulin glargine 100 See Rx Instructions SUBCUT QAM #45 12/19/23 unit-lixisenatide 33 mcg/mL mL subcutaneous pen (Soliqua 100/33) Allergies Allergy/AdvReac Type Severity Reaction Status Date / Time naproxen [From Aleve] Allergy Severe Hives and Verified 01/31/24 09:21 itching Penicillins Allergy Intermediate Rash Verified 01/31/24 09:21 tamsulosin [From Flomax] AdvReac Severe Hypotension Verified 01/31/24 09:21 naltrexone AdvReac ADR-Dizzine Verified 01/31/24 09:21 ss Review of Systems 2 Narrative: Constitutional symptoms: Negative except as documented in HPI. Skin symptoms: Negative except as documented in HPI. Eye symptoms: Negative except as documented in HPI. ENMT symptoms: Negative except as documented in HPI. Respiratory symptoms: Negative except as documented in HPI. Cardiovascular symptoms: Negative except as documented in HPI. Gastrointestinal symptoms: Negative except as documented in HPI. Genitourinary symptoms: Negative except as documented in HPI. Musculoskeletal symptoms: Negative except as documented in HPI. Neurologic symptoms: Negative except as documented in HPI. Psychiatric symptoms: Negative except as documented in HPI. Endocrine symptoms: Negative except as documented in HPI. PFSH ED 2 PFSH: Medical History Right hip pain Controlled diabetes mellitus with hyperglycemia, with long-term current use of insulin Gout, unspecified Vitamin D deficiency Osteoarthritis involving multiple joints on both sides of body Restless legs syndrome Controlled type 2 diabetes mellitus with diabetic polyneuropathy Cerebrovascular ischemia, transient Chronic GERD Essential (primary) hypertension Chronic kidney disease, unspecified Right kidney smaller then left since 2006, 2012, 2022 Acquired hypothyroidism History of mammogram 05/19/2016 Surgical History History of esophagogastroduodenoscopy (EGD) With esophagus dilation [place], [place] September 2023 S/P total right hip arthroplasty The [place] total hip system with the following implants: A 52 mm by E Trident II solid back acetabular shell, an MDM cementless liner 42 mm inner diameter by E alpha code and Accolade II size 5 with 127 degree neck angle hip stem with a 28 mm outer diameter +0 mm neck offset and a mu-ism X3 insert size 28 mm inner diameter by 42E Date of Surgery: 01/05/21. History of appendectomy History of cholecystectomy History of hip surgery Dec 2015 left total hip History of tonsillectomy History of colonoscopy 08/16/2015 Status post surgery of both feet Family History Mother Cancer PANCREASE Grandfather Diabetes PATERNAL Father Stroke Heart disease Social History Smoking and tobacco/nicotine status: never used tobacco/nicotine Second hand smoke exposure: No Alcohol intake: never Substance/Drug Use: never Adopted: No Caregiver/support person: No Lives independently: Yes Household members: none Housing: House Marital status: Number of children: 1 service: No Current occupational status: unemployed Pets and animals: No Do you think of yourself as: Straight/Heterosexual Current gender identity: Female Physical Exam 2 Narrative: EXAM NARRATIVE: General: Alert, no acute distress. Skin: Warm, dry. Head: Normocephalic, atraumatic. Neck: Supple, trachea midline. Eye: Extraocular movements are intact. Ears, nose, mouth and throat: mucosa moist. Cardiovascular: Regular, Normal peripheral perfusion. Respiratory: Lungs are clear to auscultation, respirations are non-labored, breath sounds are equal, Symmetrical chest wall expansion. Gastrointestinal: Soft, Nontender, Non distended Musculoskeletal: Normal ROM, no deformity. Neurological: Alert and oriented, No focal neurological deficit observed. Psychiatric: Cooperative, appropriate mood & affect. Course 2 Vital Signs: Vital signs: Vital Signs Temperature 97.6 F 02/02/24 13:30 Pulse Rate 78 02/02/24 17:00 Respiratory Rate 18 02/02/24 16:33 Blood Pressure 155/51 02/02/24 17:00 Pulse Oximetry 97 02/02/24 17:00 Oxygen Delivery Me thod Room Air 02/02/24 16:33 MDM - Chest Pain Medical Decision Making Differential diagnosis for patient with chest pain includes but is not limited to and based on the above HPI, review of systems and physical exam: Pneumonia. unstable angina. angina. Acute coronary syndrome / [place]. Pulmonary embolism. Costochondritis / musculoskeletal. Pleurisy. Pericarditis. Esophageal spasm. Pancreatis. Cholecystitis. Orders placed to evaluate differential diagnosis based on the above differential, HPI and physical exam EKG: Time 1328. Rate 72. Normal sinus rhythm, some lateral Q waves, no ectopy, normal CO & QRS intervals, This was reviewed and interpreted by myself the ER physician at 1335. Chest x-ray: No acute process. No infiltrate. No pneumothorax. This was reviewed and interpreted by myself the emergency room physician. I also reviewed the radiology report. Lab Review: Laboratory results were reviewed and interpreted by myself the emergency room physician. No leukocytosis. No anemia. No renal failure. Serial troponins are negative. HEART Pathway for Early Discharge in Acute Chest Pain from [employer] on 02/02/2024 All calculations should be rechecked by clinician prior to use RESULT SUMMARY: 3 points HEART Pathway Score Low risk 0.9-1.7% 30-day MACE Repeat troponin at 2 hours and if negative, discharge home with outpatient follow-up. INPUTS: History ?> 0 = Slightly suspicious EKG ?> 0 = Normal Age ?> 2 = >=5 Risk factors ?> 1 = 1-2 risk factors Initial troponin ?> 0 = <=ormal limit I reviewed the patient's medical record. Reexamination: Patient remained stable. No increased work of breathing. No altered mental status. No focal motor deficits. Patient remained chest pain-free while here. Assessment and plan: Noncardiac chest pain - Discharged home - Discussed findings and plan with patient. Answered any questions. - All laboratory values were reviewed and interpreted personally by myself, the ER physician - All imaging was reviewed and interpreted personally by myself, the ER physician. - Evaluation and treatment of this problem were appropriate in the emergency setting Lab Data 02/02/24 14:58 02/02/24 14:58 Radiology Impressions Chest X-Ray 02/02/24 14:41 IMPRESSION: 1. Normal chest. Laboratory Results WBC 7.11 10^3/uL (3.29-11.43) 02/02/24 14:58 RBC 5.07 10^6/uL (3.85-5.65) 02/02/24 14:58 Hgb 14.40 g/dL (11.27-16.99) 02/02/24 14:58 Hct 45.8 % (36-47) 02/02/24 14:58 MCV 90.3 fl (85-98) 02/02/24 14:58 MCH 28.4 pg (27-33) 02/02/24 14:58 MCHC 31.4 g/dL (30-55) 02/02/24 14:58 RDW 14.2 % (12.1-15.1) 02/02/24 14:58 Plt Count 202 10^3/cmm (157-399) 02/02/24 14:58 MPV 10.2 fL (7.4-10.4) 02/02/24 14:58 Neut % (Auto) 57.7 % 02/02/24 14:58 Lymph % (Auto) 30.1 % 02/02/24 14:58 Ida % (Auto) 7.7 % 02/02/24 14:58 Eos % (Auto) 3.7 % 02/02/24 14:58 Baso % (Auto) 0.7 % 02/02/24 14:58 Neut # (Auto) 4.10 10^3/uL (1.8-7.7) 02/02/24 14:58 Lymph # (Auto) 2.1 10^3/uL (0.8-4.8) 02/02/24 14:58 Ida # (Auto) 0.6 10^3/uL (0.2-0.9) 02/02/24 14:58 Eos # (Auto) 0.3 10^3/uL (0.0-0.8) 02/02/24 14:58 Baso # (Auto) 0.1 10^3/uL (0.0-0.1) 02/02/24 14:58 Nucleated RBC % (auto) 0 % 02/02/24 14:58 Nucleated RBCs # 0.0 /100WBC 02/02/24 14:58 Sodium 143 mmol/L (136-145) 02/02/24 14:58 Potassium 4.0 mmol/L (3.5-5.1) 02/02/24 14:58 Chloride 104 mmol/L (98-107) 02/02/24 14:58 Carbon Dioxide 27 mmol/L (22-29) 02/02/24 14:58 Anion Gap 16.0 (5-19) 02/02/24 14:58 BUN 10 mg/dL (8-23) 02/02/24 14:58 Creatinine 0.7 mg/dL (0.5-0.9) 02/02/24 14:58 GFR Calculation Not Reportable 02/02/24 14:58 Glucose 76 mg/dL (65-115) 02/02/24 14:58 Calculated Osmolality 294 mOsm/kg (285-295) 02/02/24 14:58 Calcium 9.8 mg/dL (8.5-10.5) 02/02/24 14:58 Total Bilirubin 0.6 mg/dL (0.15-1.2) 02/02/24 14:58 AST 16 U/L (0-32) 02/02/24 14:58 ALT 11 U/L (0-33) 02/02/24 14:58 Alkaline Phosphatase 68 U/L (35-105) 02/02/24 14:58 Troponin T Baseline 12 ng/L (0-10) H 02/02/24 14:58 Troponin T 120 Minute 11.25 ng/L (0-10) H 02/02/24 16:45 Delta Troponin T -0.75 ABS# (0-10) L 02/02/24 16:45 Total Protein 6.4 g/dL (6.6-8.7) L 02/02/24 14:58 Albumin 4.3 g/dL (3.5-5.2) 02/02/24 14:58 Globulin 2.1 g/dL (1.3-4.6) 02/02/24 14:58 All radiology interpretation(s) finalized by discharge Clincial Decision Support The following clinical decision support tools were used to aid in care of the patient HEART Score -> History: Slightly Suspicous, EKG: Normal, Age: 65 or more yrs, Risk Factors: 1 or 2 Risk Factors, Troponin: Baseline Trop <16 ng/L. Resulting HEART Score: 3. Discharge Plan Discharge Patient Disposition: Home Clinical Impression: Non-cardiac chest pain Condition: Stable Prescriptions: No Action aspirin [Adult Aspirin Regimen] 81 mg tablet,delayed release (DR/EC) 81 mg PO BID Hold Instructions: Resume on 02/05/21. Continue 30 days of full dose aspirin regimen before returning to your normal 81 mg daily. multivitamin [Daily Multi-Vitamin] Tablet 1 tab PO DAILY (DME) pen needle, diabetic [Comfort EZ Pen [place]] 33 gauge x 5/32 needle See Rx Instructions .ROUTE .MEDSUPPLY Qty: 100 5RF Rx Instructions: 2 times daily (DME) wheelchair See Rx Instructions .Route .MEDSUPPLY Qty: 1 0RF Rx Instructions: As directed (DME) CAM WALKER See Rx Instructions .ROUTE .MEDSUPPLY Qty: 1 0RF Rx Instructions: As directed allopurinol 100 mg tablet 100 mg PO DAILY Qty: 90 1RF duloxetine [Cymbalta] 30 mg capsule,delayed release(DR/EC) 30 mg PO BID Qty: 180 1RF famotidine [Pepcid] 40 mg tablet 40 mg PO DAILY Qty: 90 1RF metformin 500 mg tablet extended release 24 hr 1,000 mg PO BID Qty: 360 1RF pregabalin [Lyrica] 75 mg capsule 75 mg PO BID Qty: 180 1RF rosuvastatin 20 mg tablet 20 mg PO .HS Qty: 90 1RF levothyroxine [Synthroid] 175 mcg tablet See Rx Instructions PO DAILY Qty: 90 1RF Rx Instructions: 1 full tab 3 days MWF 1/2 tab on S,T, TH, S PO daily; valsartan [Diovan] 80 mg tablet 80 mg PO .IN AM Qty: 90 1RF acarbose 25 mg tablet 25 mg PO TID Qty: 270 0RF Rx Instructions: take before food Soliqua 100/33 100 unit-33 mcg/mL insulin pen See Rx Instructions SUBCUT QAM Qty: 45 1RF Rx Instructions: up to 60 units SUBCUT every morning; (DME) ASO See Rx Instructions .Route .MEDSUPPLY Qty: 1 0RF Rx Instructions: As directed (DME) nebulizers Misc See Rx Instructions .ROUTE .MEDSUPPLY Qty: 1 0RF Rx Instructions: As directed (DME) Disposable nebulizer circuit See Rx Instructions .ROUTE .MEDSUPPLY Qty: 1 0RF Rx Instructions: As directed cholecalciferol (vitamin D3) [Vitamin D3] 25 mcg (1,000 unit) Capsule 25 mcg PO DAILY fluticasone propionate [Flonase Allergy Relief] 50 mcg/actuation spray,suspension 1 spray intranasal Q12H PRN (Reason: allergies) Rx Instructions: administer into each nostril Discharge Orders: Discharge ED (Routine); Ordered 02/02/24 Ordered By: Shanna Fischer Referrals: Dev Rivera, [facility] [Primary Care Provider] - Discharge Diet: Usual diet Discharge Activity: Resume usual activity Patient Instructions: Noncardiac Chest Pain (ED), Opioid Safety, Pain Management Activity Restrictions/Additional Instructions: Thank you for choosing [facility] for your healthcare needs today. Please realize this is an emergency room and that we are providing you with a medical screening exam and this may not be complete and all inclusive of all the testing and or work up that you may need to determine your ailment or severity of your illness. You have been screened and evaluated and felt safe for discharge. Health conditions do change or evolve sometimes and as such it is important that you follow up with your Primary Doctor to be re checked, 3-5 days is a general good time frame for follow up. 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
[2024-02-02 15:06] LABS: Basophils # 0.1 10^3/uL (0.0-0.1); Basophils % 0.7 %; Eosinophils # 0.3 10^3/uL (0.0-0.8); Eosinophils % 3.7 %; Hematocrit 45.8 % (36-47); Lymphocytes # 2.1 10^3/uL (0.8-4.8); Lymphocytes % 30.1 %; Mean Corpuscular HGB Conc 31.4 g/dL (30-55); Mean Corpuscular Hemoglobin 28.4 pg (27-33); Mean Corpuscular Volume 90.3 fl (85-98); Mean Platelet Volume 10.2 fL (7.4-10.4); Monocytes # 0.6 10^3/uL (0.2-0.9); Monocytes % 7.7 %; Neutrophils % 57.7 %; Nucleated Red Blood Cells % 0 %; Platelet Count 202 10^3/cmm (157-399); Red Blood Count 5.07 10^6/uL (3.85-5.65); Red Cell Distribution Width 14.2 % (12.1-15.1); White Blood Count 7.11 10^3/uL (3.29-11.43)
[2024-02-02 15:25] LABS: Troponin(5th) Baseline 12 ng/L (0-10)
[2024-02-02 15:27] LABS: Alanine Aminotransferase 11 U/L (0-33); Albumin Level 4.3 g/dL (3.5-5.2); Alkaline Phosphatase 68 U/L (35-105); Aspartate Amino Transferase 16 U/L (0-32); Blood Urea Nitrogen 10 mg/dL (8-23); Calcium 9.8 mg/dL (8.5-10.5); Carbon Dioxide 27 mmol/L (22-29); Chloride 104 mmol/L (98-107); Creatinine Clr Calc Pharmacy 63.0674; Globulin 2.1 g/dL (1.3-4.6); Glucose 76 mg/dL (65-115); Osmolality Calculated 294 mOsm/kg (285-295); Sodium 143 mmol/L (136-145); Total Bilirubin 0.6 mg/dL (0.15-1.2); Total Protein 6.4 g/dL (6.6-8.7)
--- NOTE | 2024-02-02 16:30 | ECG_ITS ---
[facility] Date: 2024-02[facility]02 Pat Name: Janneth Salamanca Department: Room: Gender: Female Membership Secretary: : 1945 Requested By: Shanna Cowan Order Number: [id number] Kemal MD: Nico Kim M.D. Measurements Intervals [place] Rate: 72 P: 138 NC: 139 QRS: 203 QRSD: 90 T: 189 QT: 336 QTc: 369 Interpretive Statements SINUS RHYTHM Compared to ECG 02/02/2024 13:28:07 Myocardial infarct finding no longer present Electronically Signed On 02-03-2024 10:34:04 [facility] REPA[facility] PNEUMATIC by Nico Kim M.D. [email or web address]
[2024-02-02 17:09] LABS: Troponin 5 2HR 11.25 ng/L (0-10); Troponin 5 2HR Delta -0.75 ABS# (0-10)
== END 2024-02-02 17:57 | disposition home or self-care (01) ==
PROVIDERS: Emergency Provider Emergency Medicine; PCP Nurse Practitioner
DX: R07.89 Other chest pain (principal); Z79.82 Long term (current) use of aspirin; Z79.84 Long term (current) use of oral hypoglycemic drugs; E11.22 Type 2 diabetes mellitus with diabetic chronic kidney disease; I12.9 Hypertensive chronic kidney disease with stage 1 through stage 4 chronic kidney disease, or unspecified chronic kidney disease; N18.9 Chronic kidney disease, unspecified
CPT/HCPCS: 36415; 71045; 80053; 84484; 85025; 93005; 99285

== ENCOUNTER → 2024-02-29 09:03 | Outpatient (BNVA) | payer MEDICARE, SELFPAY | PROVIDERS: PCP Nurse Practitioner; Visit Provider Nurse Practitioner | DX: I10 Essential (primary) hypertension (principal); Z79.4 Long term (current) use of insulin; E11.65 Type 2 diabetes mellitus with hyperglycemia; E11.42 Type 2 diabetes mellitus with diabetic polyneuropathy | CPT/HCPCS: 80053; 80061; 83036; 84443; 85025 ==

== ENCOUNTER 2024-04-04 13:20 | Outpatient (CLI) | payer MEDICARE, SELFPAY ==
--- NOTE | 2024-04-04 13:45 | MR_ITS ---
WS: [id number] MRI HEAD WITHOUT CONTRAST TECHNIQUE: Sagittal T1, T2 axial, T2 axial FLAIR, axial and coronal T1 images, axial susceptibility w eighted imaging, axial diffusion weighted images, and coronal T2 images were obtained. CLINICAL INFORMATION: R26.9 - Unspecified abnormalities of gait and mobility COMPARISON: MRI 2019 FINDINGS: No evidence of restricted diffusion to suggest acute ischemia. Ventricular system and basilar cistern s are patent. Mild to moderate small vessel changes with moderate parenchymal volume loss. Volume los s has progressed slightly. Normal posterior fossa. Normal vascular flow voids at the skull base. No e xtra-axial fluid collections. No evidence of mass or mass effect. Bilateral maxillary sinusitis with air-fluid levels. Normal posterior nasopharynx. Bilateral mastoid effusions. No hemosiderin on the susceptibly weighted images. Normal optic chiasm and pituitary infundibulum. Mo derate symmetric atrophy temporal lobes and hippocampal formations. MR/MR head wo con* [id number] IMPRESSION: 1. No evidence of restricted diffusion to suggest acute ischemia. 2. Mild small vessel changes with moderate parenchymal volume loss slightly pr ogressed. 3. No hemosiderin on susceptibility-weighted images. 4. Bilateral maxillary sinusitis with air-fluid levels. 5. Bilateral mastoid effusions. 6. Moderate symmetric atrophy temporal lobes and hippocampal formations.
== END 2024-04-04 13:21 | disposition home or self-care (01) ==
LOC: RAD 13:24
PROVIDERS: PCP Nurse Practitioner; Visit Provider Nurse Practitioner
DX: R26.9 Unspecified abnormalities of gait and mobility (principal); R93.89 Abnormal findings on diagnostic imaging of other specified body structures; J32.0 Chronic maxillary sinusitis; G31.89 Other specified degenerative diseases of nervous system
CPT/HCPCS: 70551

== ENCOUNTER → 2024-05-15 08:40 | Outpatient (BNVA) | payer MEDICARE, SELFPAY | PROVIDERS: PCP Nurse Practitioner; Visit Provider Nurse Practitioner | DX: E11.9 Type 2 diabetes mellitus without complications (principal); E55.9 Vitamin D deficiency, unspecified | CPT/HCPCS: 80053; 80061; 82306; 83036; 84443; 85025 ==

== ENCOUNTER → 2024-06-19 14:35 | Outpatient (BNVA) | payer MEDICARE, SELFPAY | PROVIDERS: PCP Nurse Practitioner; Visit Provider Specialist | DX: Z98.890 Other specified postprocedural states (principal); Z96.641 Presence of right artificial hip joint | CPT/HCPCS: 73502; 99213 ==

== ENCOUNTER → 2024-08-08 07:59 | Outpatient (BNVA) | payer MEDICARE, SELFPAY | PROVIDERS: PCP Nurse Practitioner; Visit Provider Nurse Practitioner | DX: E11.9 Type 2 diabetes mellitus without complications (principal); E55.9 Vitamin D deficiency, unspecified | CPT/HCPCS: 80053; 80061; 82306; 83036; 84443; 85025 ==

== ENCOUNTER → 2024-10-31 08:35 | Outpatient (BNVA) | payer MEDICARE, SELFPAY | PROVIDERS: PCP Nurse Practitioner; Visit Provider Nurse Practitioner | DX: E11.9 Type 2 diabetes mellitus without complications (principal); E55.9 Vitamin D deficiency, unspecified | CPT/HCPCS: 80053; 80061; 82306; 83036; 84443; 85025 ==

== ENCOUNTER → 2024-11-07 14:43 | Outpatient (BNVA) | payer MEDICARE, SELFPAY | PROVIDERS: PCP Nurse Practitioner; Visit Provider Nurse Practitioner | DX: E03.9 Hypothyroidism, unspecified (principal) | CPT/HCPCS: 84439; 84481 ==

== ENCOUNTER 2024-11-19 15:05 | Outpatient (CLI) | payer MEDICARE, SELFPAY ==
--- NOTE | 2024-11-19 15:00 | XR_ITS ---
WS: [id number] SCREENING DEXA SCAN [employer] CLINICAL INFORMATION: Z78.0 - Asymptomatic menopausal state COMPARISON: 2018 FINDINGS: The L1-L4 bone mineral density measures 0.918 g/cm2. This corresponds to a T score score of -2.2 and Z score of -0.9. Left forearm bone mineral density measures 0.594. This corresponds to a T score of -3.2 and Z score of -0.7. XR/XR DEXA axial skeleton* [id number] IMPRESSION: Osteopenia lumbar spine. Osteoporosis LEFT forearm.
== END 2024-11-19 15:06 | disposition home or self-care (01) ==
LOC: RAD 15:05
PROVIDERS: PCP Nurse Practitioner; Visit Provider Nurse Practitioner
DX: Z13.820 Encounter for screening for osteoporosis (principal); Z78.0 Asymptomatic menopausal state; M85.88 Other specified disorders of bone density and structure, other site; M81.0 Age-related osteoporosis without current pathological fracture
CPT/HCPCS: 77080

== ENCOUNTER → 2025-01-07 09:32 | Outpatient (BNVA) | payer MEDICARE, SELFPAY | PROVIDERS: PCP Nurse Practitioner; Visit Provider Nurse Practitioner | DX: E11.65 Type 2 diabetes mellitus with hyperglycemia (principal); Z79.4 Long term (current) use of insulin; E11.42 Type 2 diabetes mellitus with diabetic polyneuropathy; E03.9 Hypothyroidism, unspecified | CPT/HCPCS: 80053; 83036; 84439; 84443; 84481 ==

== ENCOUNTER 2025-02-18 09:05 | Outpatient (CLI) | payer MEDICARE, SELFPAY ==
--- NOTE | 2025-02-18 09:00 | MM_ITS ---
WS: [id number] BILATERAL 3D TOMOSYNTHESIS DIGITAL SCREENING MAMMOGRAPHY WITH CAD CLINICAL INFORMATION: Z12.31 - Encounter for screening mammogram for malignant ... HISTORY: Screening mammogram. No current complaints. COMPARISON: 2023 TECHNIQUE: Bilateral CC and MLO views. FINDINGS: Scattered fibroglandular densities bilaterally. 6 mm ovoid asymmetric density lower outer LEFT breast. This is best seen on the cc view. Recommend LEFT breast diagnostic mammography and ultrasound if persistent. Unremarkable RIGHT breast MM/MM [facility] tomosynthesis [id number] IMPRESSION: DENSITY: There are scattered areas of fibroglandular density. BI-RADS: 0 - Incomplete: Need additional imaging evaluation. FOLLOW UP: Need Additional Imaging Recommend LEFT breast diagnostic mammography and ultrasound if persistent.
== END 2025-02-18 09:06 | disposition home or self-care (01) ==
LOC: MOBLMAM 09:08
PROVIDERS: PCP Nurse Practitioner; Visit Provider Nurse Practitioner
DX: Z12.31 Encounter for screening mammogram for malignant neoplasm of breast (principal); Z78.0 Asymptomatic menopausal state; R92.323 Mammographic fibroglandular density, bilateral breasts; N64.89 Other specified disorders of breast
CPT/HCPCS: 77063; 77067

== ENCOUNTER 2025-03-10 12:50 | Outpatient (CLI) | payer MEDICARE, SELFPAY ==
--- NOTE | 2025-03-10 12:54 | MM_ITS ---
WS: [id number] LEFT 3D TOMOSYNTHESIS DIGITAL MAMMOGRAPHY WITH CAD CLINICAL INFORMATION: R92.8 - Other abnormal and inconclusive findings on diagn... HISTORY: Additional views COMPARISON: 02/18/2025 TECHNIQUE: 3 views of the left breast were obtained. FINDINGS: Scattered fibroglandular densities of the left breast. Previously described 6 mm asymmetric density lower outer LEFT breast resolves today on the spot compression views. Recommend return to annual screening mammography MM/MM diag LT tomosynthesis [id number] IMPRESSION: DENSITY: There are scattered areas of fibroglandular density. BI-RADS: 2 - Benign. FOLLOW UP: 1 Year Follow-up Recommend return to annual screening mammography.
== END 2025-03-10 12:51 | disposition home or self-care (01) ==
LOC: RAD 12:51
PROVIDERS: PCP Nurse Practitioner; Visit Provider Nurse Practitioner
DX: Z12.31 Encounter for screening mammogram for malignant neoplasm of breast (principal); R92.8 Other abnormal and inconclusive findings on diagnostic imaging of breast; R92.323 Mammographic fibroglandular density, bilateral breasts; N64.89 Other specified disorders of breast
CPT/HCPCS: 77061; 77063